=== PATIENT | female | born 1965 | race Hispanic/Latino ===

== ENCOUNTER 2021-09-11 17:19 | Inpatient (IN) | payer MEDICAID ==
[2021-09-11 19:08] LABS: Hematocrit 44.9 % (30.3-42.9); Hemoglobin 14.9 gm/dl (10.1-14.3); Mean Corpuscular HGB Conc 33 % (30-34); Mean Corpuscular Volume 90 fl (79-97); Platelet Count 323 K/mm3 (140-440); Red Blood Count 4.98 M/mm3 (3.65-5.03); Red Cell Distribution Width 14.1 % (13.2-15.2)
[2021-09-11 19:14] LABS: BUN/Creatinine Ratio 8
--- NOTE | 2021-09-11 19:18 | XRay Report ---
Chest 2 views INDICATION: Chest pain with cough IMPRESSION: There is a large cavitary mass identified projecting over the right apex measuring about 6 cm in diameter. This mass is ultimately nonspecific but could be infectious. Cross-sectional evalua tion is suggested. There is scattered pneumonia within the left upper and left lower lobes. Signer Name: Pedro Summers MD Signed: 09/11/2021 7:14 PM Workstation Name: [id number]
[2021-09-11 19:53] LABS: Alanine Aminotransferase 26 units/L (7-56); Blood Urea Nitrogen 6 mg/dL (7-17); Calcium 9.3 mg/dL (8.4-10.2); Hemolysis Index 0
[2021-09-11 20:56] LABS: Bacteria,Urine 1+ /HPF (Negative)
[2021-09-11 21:08] LABS: Bilirubin,Urine Negative (Negative); Blood,Urine Negative (Negative); Color,Urine Yellow (Yellow)
[2021-09-11 22:23] LABS: Anisocytosis 1+; Basophils % (Manual) 0 % (0.0-1.8); Platelet Estimate Consistent w Auto; Total Cells Counted 100
[2021-09-11] MEDS ORDERED: ONDANSETRON 4 MG/2 ML INJ IV ONE (23:07)
[2021-09-11] MEDS ORDERED: KETOROLAC 30 MG/1 ML INJ IV ONE (23:07)
[2021-09-11] MEDS ORDERED: SODIUM CHLORIDE 0.9% 1000 ML 1,000 ML IV ONE (23:07)
[2021-09-12] MEDS ORDERED: AZITHROMYCIN/NS 500 MG/250 ML 500 MG/250 ML BAG IV ONE (00:06)
[2021-09-12] MEDS ORDERED: MORPHINE 4 MG/1 ML INJ IV ONE ×2 (00:08→01:10)
[2021-09-12] MEDS ORDERED: cefTRIAXone/NS 1 GM/50 ML 1 GM/50 ML BAG IV ONE (00:10)
--- NOTE | 2021-09-12 00:39 | Emergency Department Report ---
ED General Adult HPI - General Chief complaint: Fever Stated complaint: FEVER/VOMITTING/COUGH/HEADACHE Time Seen by Provider: 09/11/21 23:07 Source: patient, family Mode of arrival: Wheelchair Limitations: Physical Limitation - History of Present Illness Initial comments: 56-year-old female with a history of COPD, hypertension, thyroid disease, arthritis, with chronic oxygen use presents to the emergency department with fever. Patient reports her symptoms began about 2 to 3 days ago, progressively worsening with associated headaches, body aches, cough and vomiting. States that temperature has been running anything from 100-102, no recent travel or sick contacts. Symptoms associated with chest pain with inspiration, worsening shortness of breath from her usual symptoms, loss of appetite fatigue weakness. No hemoptysis, no recent travel or sick contacts, patient has not been vaccinated for COVID. -: Gradual, days(s) (2) Location: head, chest Radiation: non-radiation Severity scale (0 -10): 10 Quality: aching, sharp Consistency: constant Improves with: none Worsens with: none Associated Symptoms: chest pain, cough, fever/chills, headaches, loss of appetite, malaise, nausea/vomiting, shortness of breath, weakness - Related Data Allergies Allergy/AdvReac Type Severity Reaction Status Date / Time doxycycline Allergy Hives Verified 09/11/21 17:38 ED Review of Systems ROS: Stated complaint: FEVER/VOMITTING/COUGH/HEADACHE Other details as noted in HPI Constitutional: chills, fever, malaise ENT: denies: throat pain Respiratory: cough, orthopnea, shortness of breath, SOB with exertion. denies: wheezing Cardiovascular: chest pain, dyspnea on exertion, edema. denies: palpitations Endocrine: denies: excessive sweating, intolerance to cold, intolerance to heat Gastrointestinal: nausea, vomiting. denies: abdominal pain, diarrhea, constipation, melena Musculoskeletal: back pain, arthralgia, myalgia Skin: denies: rash, lesions Neurological: headache, weakness. denies: numbness, paresthesias Psychiatric: anxiety. denies: auditory hallucinations, homicidal thoughts ED Past Medical Hx - Past Medical History Previous Medical History?: Yes Hx Hypertension: Yes Hx GERD: Yes Hx COPD: Yes Additional medical history: Leg weakness, Hiatal hernia, Thyroid problems - Surgical History Past Surgical History?: Yes Hx Cholecystectomy: Yes Additional Surgical History: Tubaligation, Bladder tact, - Social History Substance Use Type: None ED Physical Exam - General Limitations: Physical Limitation General appearance: alert (Puny appearing female), in no apparent distress, other - Head Head exam: Present: atraumatic, normocephalic - Eye Eye exam: Present: normal appearance. Absent: periorbital swelling, periorbital tenderness - ENT ENT exam: Present: mucous membranes dry - Neck Neck exam: Present: normal inspection. Absent: tenderness, lymphadenopathy - Respiratory Respiratory exam: Present: chest wall tenderness, decreased breath sounds. Absent: respiratory distress, wheezes, accessory muscle use - Cardiovascular Cardiovascular Exam: Present: normal rhythm, tachycardia - GI/Abdominal GI/Abdominal exam: Present: soft. Absent: distended, tenderness - Extremities Exam Extremities exam: Present: full ROM, tenderness, normal capillary refill. Absent: pedal edema, joint swelling, calf tenderness - Back Exam Back exam: Present: normal inspection, paraspinal tenderness - Neurological Exam Neurological exam: Present: alert, oriented X3. Absent: altered - Psychiatric Psychiatric exam: Present: normal affect, normal mood - Skin Skin exam: Present: warm, dry, normal color. Absent: rash, ecchymosis ED Course Vital Signs 09/11/21 17:41 Temperature 99.6 F Pulse Rate 109 H Respiratory 22 Rate Blood Pressure 138/92 [Right] O2 Sat by Pulse 97 Oximetry ED Medical Decision Making - Lab Data Result diagrams: 09/11/21 18:27 09/11/21 18:27 - Radiology Data Radiology results: report reviewed MPRESSION: There is a large cavitary mass identified projecting over the right apex measuring about 6 cm in diameter. This mass is ultimately nonspecific but could be infectious. Cross-sectional evaluation is suggested. There is scattered pneumonia within the left upper and left lower lobes. Signer Name: Pedro Summers MD - Medical Decision Making Patient with history of COPD oxygen use presenting with fever, headache cough shortness of breath. Chest x-ray pneumonia in the left lobes, unknown questionable mass in the right apex. coupled with leukocytosis, fever, history and exam, blood cultures antibiotics and admission have all been performed Spoke with the hospitalist Dr. Oscar @ [id number]-patient accepted. CT chest ordered. Updated patient on plan for admission with understanding Audio voice dictation device used, hence the chart might contain some dictation errors, mispronunciations, wrong spelling and wrong verbiage. Critical care attestation.: If time is entered above; I have spent that time in minutes in the direct care of this critically ill patient, excluding procedure time. ED Disposition Clinical Impression: Pneumonia involving left lung, COPD (chronic obstructive pulmonary disease), Supplemental oxygen dependent, Cavitating mass in right upper lung lobe, SIRS (systemic inflammatory response syndrome) Disposition: 09 ADMITTED INPATIENT Is pt being admited?: Yes Does the pt Need Aspirin: No Condition: Fair Instructions: Bacterial Pneumonia (ED), Chronic Obstructive Pulmonary Disease (ED)
[2021-09-12] MEDS ORDERED: ONDANSETRON 4 MG/2 ML INJ IV PRN (03:04)
[2021-09-12] MEDS ORDERED: ALBUTEROL 2.5 MG/3 ML NEBU IH PRN (03:04)
--- NOTE | 2021-09-12 03:12 | History and Physical Report ---
History of Present Illness Date of examination: 09/12/21 Date of admission: 09/12/21 Chief complaint: Fever Cough Vomiting Headache History of present illness: 56-year-old female with a history of COPD, hypertension, thyroid disease, arthritis, with chronic oxygen use presents to the emergency department with fever. Patient reports her symptoms began about 2 to 3 days ago, progressively worsening with associated headaches, body aches, cough and vomiting. States that temperature has been running anything from 100-102, no recent travel or sick contacts. Symptoms associated with chest pain with inspiration, worsening shortness of breath from her usual symptoms, loss of appetite fatigue weakness. No hemoptysis, no recent travel or sick contacts, patient has not been vaccinated for COVID. In the emergency room chest x-ray shows there is a large cavitary mass identified projecting over the right apex measuring about 6 cm in diameter. This mass is ultimately nonspecific but could be infectious. There is scattered pneumonia within the left upper and left lower lobes. So we will not admit the patient. We will put the patient on neb treatment, antibiotic, order CT scan of the chest and consult pulmonary. We also order COVID PCR test. Past History Past Medical History: arthritis, COPD, GERD, hypertension, other (Leg weakness, Hiatal hernia, Thyroid problems) Past Surgical History: cholecystectomy, Other (Tubaligation, Bladder tact,) Social history: no significant social history Family history: hypertension Medications and Allergies Allergies Allergy/AdvReac Type Severity Reaction Status Date / Time doxycycline Allergy Hives Verified 09/11/21 17:38 Review of Systems All systems: negative Constitutional: fatigue, malaise, lethargy, other (Fever, cough, headache, vomiting) Exam - Constitutional Vitals: Temp Pulse Resp BP Pulse Ox 99.6 F 109 H 22 138/92 97 09/11/21 17:41 09/11/21 17:41 09/11/21 17:41 09/11/21 17:41 09/11/21 17:41 General appearance: Present: no acute distress, well-nourished - EENT Eyes: Present: PERRL ENT: hearing intact, clear oral mucosa - Neck Neck: Present: supple, normal ROM - Respiratory Respiratory effort: normal Respiratory: bilateral: diminished - Cardiovascular Heart Sounds: Present: S1 & S2. Absent: rub, click - Extremities Extremities: pulses symmetrical, No edema Peripheral Pulses: within normal limits - Abdominal General gastrointestinal: Present: soft, non-tender, non-distended, normal bowel sounds Female genitourinary: Present: normal - Integumentary Integumentary: Present: clear, warm, dry - Musculoskeletal Musculoskeletal: gait normal, strength equal bilaterally - Psychiatric Psychiatric: appropriate mood/affect, intact judgment & insight - Neurologic Neurologic: CNII-XII intact, moves all extremities Results - Labs CBC & Chem 7: 09/11/21 18:27 09/11/21 18:27 Labs: Laboratory Last Values WBC 20.2 K/mm3 (4.5-11.0) H 09/11/21 18: RBC 4.98 M/mm3 (3.65-5.03) 09/11/21 18: Hgb 14.9 gm/dl (10.1-14.3) H 09/11/21 18: Hct 44.9 % (30.3-42.9) H 09/11/21 18: MCV 90 fl (79-97) 09/11/21 18: MCH 30 pg (28-32) 09/11/21 18: MCHC 33 % (30-34) 09/11/21 18: RDW 14.1 % (13.2-15.2) 09/11/21 18: Plt Count 323 K/mm3 (140-440) 09/11/21 18:27 Add Manual Diff Complete 09/11/21 18: Total Counted 100 09/11/21 18: Seg Neuts % (Manual) 84.0 % (40.0-70.0) H 09/11/21 18: Band Neutrophils % 0 % 09/11/21 18:27 Lymphocytes % (Manual) 9.0 % (13.4-35.0) L 09/11/21 18:27 Reactive Lymphs % (Man) 0 % 09/11/21 18: Monocytes % (Manual) 5.0 % (0.0-7.3) 09/11/21 18: Eosinophils % (Manual) 2.0 % (0.0-4.3) 09/11/21 18: Basophils % (Manual) 0 % (0.0-1.8) 09/11/21 18: Metamyelocytes % 0 % 09/11/21 18:27 Myelocytes % 0 % 09/11/21 18:27 Promyelocytes % 0 % 09/11/21 18:27 Blast Cells % 0 % 09/11/21 18:27 Nucleated RBC % Not Reportable 09/11/21 18:27 Seg Neutrophils # Man 17.0 K/mm3 (1.8-7.7) H 09/11/21 18:27 Band Neutrophils # 0.0 K/mm3 09/11/21 18:27 Lymphocytes # (Manual) 1.8 K/mm3 (1.2-5.4) 09/11/21 18:27 Abs React Lymphs (Man) 0.0 K/mm3 09/11/21 18:27 Monocytes # (Manual) 1.0 K/mm3 (0.0-0.8) H 09/11/21 18:27 Eosinophils # (Manual) 0.4 K/mm3 (0.0-0.4) 09/11/21 18:27 Basophils # (Manual) 0.0 K/mm3 (0.0-0.1) 09/11/21 18:27 Metamyelocytes # 0.0 K/mm3 09/11/21 18:27 Myelocytes # 0.0 K/mm3 09/11/21 18:27 Promyelocytes # 0.0 K/mm3 09/11/21 18:27 Blast Cells # 0.0 K/mm3 09/11/21 18:27 WBC Morphology Not Reportable 09/11/21 18:27 Hypersegmented Neuts Not Reportable 09/11/21 18:27 Hyposegmented Neuts Not Reportable 09/11/21 18:27 Hypogranular Neuts Not Reportable 09/11/21 18:27 Smudge Cells Not Reportable 09/11/21 18:27 Toxic Granulation Not Reportable 09/11/21 18:27 Toxic Vacuolation Not Reportable 09/11/21 18:27 Dohle Bodies Not Reportable 09/11/21 18:27 Pelger-Huet Anomaly Not Reportable 09/11/21 18:27 Hipolito Rods Not Reportable 09/11/21 18:27 Platelet Estimate Consistent w auto 09/11/21 18:27 Clumped Platelets Not Reportable 09/11/21 18:27 Plt Clumps, EDTA Not Reportable 09/11/21 18:27 Large Platelets Not Reportable 09/11/21 18:27 Giant Platelets Not Reportable 09/11/21 18:27 Platelet Satelliting Not Reportable 09/11/21 18:27 Plt Morphology Comment Not Reportable 09/11/21 18:27 RBC Morphology Not Reportable 09/11/21 18:27 Dimorphic RBCs Not Reportable 09/11/21 18:27 Polychromasia Not Reportable 09/11/21 18:27 Hypochromasia Not Reportable 09/11/21 18:27 Poikilocytosis Not Reportable 09/11/21 18:27 Anisocytosis 1+ 09/11/21 18:27 Microcytosis Not Reportable 09/11/21 18:27 Macrocytosis Not Reportable 09/11/21 18:27 Spherocytes Not Reportable 09/11/21 18:27 Pappenheimer Bodies Not Reportable 09/11/21 18:27 Sickle Cells Not Reportable 09/11/21 18:27 Target Cells Not Reportable 09/11/21 18:27 Tear Drop Cells Not Reportable 09/11/21 18:27 Ovalocytes Not Reportable 09/11/21 18:27 Helmet Cells Not Reportable 09/11/21 18:27 [place] Bodies Not Reportable 09/11/21 18:27 [place] Rings Not Reportable 09/11/21 18:27 Demian Cells Not Reportable 09/11/21 18:27 Bite Cells Not Reportable 09/11/21 18:27 Crenated Cell Not Reportable 09/11/21 18:27 Elliptocytes Not Reportable 09/11/21 18:27 Acanthocytes (Spur) Not Reportable 09/11/21 18:27 Rouleaux Not Reportable 09/11/21 18:27 Hemoglobin C Crystals Not Reportable 09/11/21 18:27 Schistocytes Not Reportable 09/11/21 18:27 Malaria parasites Not Reportable 09/11/21 18:27 Talha Bodies Not Reportable 09/11/21 18:27 Hem Pathologist Commnt No 09/11/21 18:27 Sodium 136 mmol/L (137-145) L 09/11/21 18:27 Potassium 3.3 mmol/L (3.6-5.0) L 09/11/21 18:27 Chloride 96.2 mmol/L (98-107) L 09/11/21 18:27 Carbon Dioxide 26 mmol/L (22-30) 09/11/21 18:27 Anion Gap 17 mmol/L 09/11/21 18:27 BUN 6 mg/dL (7-17) L 09/11/21 18:27 Creatinine 0.8 mg/dL (0.6-1.2) 09/11/21 18:27 Estimated GFR > 60 ml/min 09/11/21 18:27 BUN/Creatinine Ratio 8 % 09/11/21 18:27 Glucose 98 mg/dL (65-100) 09/11/21 18:27 Lactic Acid 1.00 mmol/L (0.7-2.0) 09/12/21 00:19 Calcium 9.3 mg/dL (8.4-10.2) 09/11/21 18:27 Total Bilirubin 0.40 mg/dL (0.1-1.2) 09/11/21 18:27 AST 29 units/L (5-40) 09/11/21 18:27 ALT 26 units/L (7-56) 09/11/21 18:27 Alkaline Phosphatase 170 units/L (35-129) H 09/11/21 18:27 Total Protein 8.6 g/dL (6.3-8.2) H 09/11/21 18:27 Albumin 4.0 g/dL (3.9-5) 09/11/21 18:27 Albumin/Globulin Ratio 0.9 % 09/11/21 18:27 Urine Color Yellow (Yellow) 09/11/21 Unknown Urine Turbidity Slightly cloudy (Clear) 09/11/21 Unknown Urine pH 8.0 (5.0-7.0) H 09/11/21 Unknown Ur Specific [place] 1.030 (1.003-1.030) 09/11/21 Unknown Urine Protein 30 mg/dl mg/dL (Negative) 09/11/21 Unknown Urine Glucose (UA) Negative mg/dL (Negative) 09/11/21 Unknown Urine Ketones Negative mg/dL (Negative) 09/11/21 Unknown Urine Blood Negative (Negative) 09/11/21 Unknown Urine Nitrite Negative (Negative) 09/11/21 Unknown Ur Reducing Substances Not Reportable 09/11/21 Unknown Urine Bilirubin Negative (Negative) 09/11/21 Unknown Urine Ictotest Not Reportable 09/11/21 Unknown Urine Urobilinogen 2.0 mg/dL (<2.0) 09/11/21 Unknown Ur Leukocyte Esterase Small (Negative) 09/11/21 Unknown Urine WBC (Auto) 30.0 /HPF (0.0-6.0) H 09/11/21 Unknown Urine RBC (Auto) 1.0 /HPF (0.0-6.0) 09/11/21 Unknown U Epithel Cells (Auto) < 1.0 /HPF (0-13.0) 09/11/21 Unknown Urine Bacteria (Auto) 1+ /HPF (Negative) 09/11/21 Unknown - Imaging and Cardiology Chest x-ray: report reviewed Assessment and Plan VTE prophylaxis?: Chemical Plan of care discussed with patient/family: Yes - Patient Problems (1) Pneumonia involving left lung Current Visit: Yes Status: Acute Plan to address problem: Admit the patient to the medical telemetry. Oxygen by nasal cannula 3 L/min. DuoNeb nebulizer every 4 hours. Albuterol via nebulizer every 4 hours as needed. Rocephin 2 g IV daily. Zithromax 500 mg p.o. daily. Blood culture and sputum culture. Follow CT scan of the chest. Consult pulmonary. Follow COVID PCR test (2) Cavitating mass in right upper lung lobe Current Visit: Yes Status: Acute Plan to address problem: Oxygen by nasal cannula 3 L/min. DuoNeb nebulizer every 4 hours. Albuterol via nebulizer every 4 hours as needed. Follow CT scan of the chest. Consult pulmonary. Consult oncology if needed (3) GERD (gastroesophageal reflux disease) Current Visit: Yes Status: Acute Plan to address problem: Pepcid 20 mg p.o. twice daily. We continue the home medication (4) Hypertension Current Visit: Yes Status: Acute Plan to address problem: Hydralazine 10 mg IV every 6 hours as needed. We continue the home medication (5) SIRS (systemic inflammatory response syndrome) Current Visit: Yes Status: Acute Plan to address problem: Rocephin 2 g IV daily. Zithromax 500 mg p.o. daily. Blood culture and sputum culture. Follow CT scan of the chest. Consult pulmonary. Recheck CBC in the morning. (6) COPD (chronic obstructive pulmonary disease) Current Visit: Yes Status: Acute Plan to address problem: Oxygen by nasal cannula 3 L/min. DuoNeb nebulizer every 4 hours. Albuterol via nebulizer every 4 hours as needed. (7) Supplemental oxygen dependent Current Visit: Yes Status: Acute Plan to address problem: Oxygen by nasal cannula 3 L/min. DuoNeb nebulizer every 4 hours. Albuterol via nebulizer every 4 hours as needed. (8) DVT prophylaxis Current Visit: Yes Status: Acute Plan to address problem: Heparin 5000 units subcu every 12 hours for DVT prophylaxis. Pepcid 20 mg p.o. twice daily for GI prophylaxis. Patient is a full code
[2021-09-12] MEDS ORDERED: hydrALAZINE 20 MG/1 ML INJ IV PRN (03:14)
[2021-09-12] MEDS: IPRATROPIUM/ALBUTEROL SULFATE 3 ML AMPUL.NEB IH SCH ×2 (07:32→14:43)
--- NOTE | 2021-09-12 08:30 | Consultation ---
History of Present Illness Consult date: 09/12/21 Requesting physician: KAMLA TINEO Reason for consult: lung mass, abnormal CXR/CT Past History Past Medical History: arthritis, COPD, GERD, hypertension, other (Leg weakness, Hiatal hernia, Thyroid problems) Past Surgical History: cholecystectomy, Other (Tubaligation, Bladder tact,) Social history: no significant social history Family history: hypertension Medications and Allergies Allergies Allergy/AdvReac Type Severity Reaction Status Date / Time doxycycline Allergy Hives Verified 09/11/21 17:38 Active Meds: Active Medications Acetaminophen (Acetaminophen 325 Mg Tab) 650 mg PO Q4H PRN PRN Reason: Pain MILD(1-3)/Fever >100.5/DEGROOT Albuterol (Albuterol 2.5 Mg/3 Ml Nebu) 2.5 mg IH Q3HRT PRN PRN Reason: Shortness Of Breath Albuterol/Ipratropium (Ipratropium/Albuterol Sulfate 3 Ml Ampul.Neb) 1 ampul IH Q6HRT [facility] Last Admin: 09/12/21 07:32 Dose: 1 ampul Azithromycin (Azithromycin 250 Mg Tab) 500 mg PO QDAY@2200 [facility]; Protocol Stop: 09/15/21 23:59 Famotidine (Famotidine 20 Mg Tab) 20 mg PO BID [facility] Heparin Sodium (Porcine) (Heparin 5,000 Unit/1 Ml Vial) 5,000 unit SUB-Q Q12HR [facility] Hydralazine HCl (Hydralazine 20 Mg/1 Ml Inj) 10 mg IV Q6H PRN PRN Reason: Blood Pressure Ceftriaxone Sodium (Rocephin/Ns 2 Gm/100 Ml) 2 gm in 100 mls @ 200 mls/hr IV Q24H [facility]; Protocol Stop: 09/15/21 23:59 Morphine Sulfate (Morphine 2 Mg/1 Ml Inj) 2 mg IV Q4H PRN PRN Reason: Pain, Moderate (4-6) Morphine Sulfate (Morphine 4 Mg/1 Ml Inj) 4 mg IV Q4H PRN PRN Reason: Pain , Severe (7-10) Ondansetron HCl (Ondansetron 4 Mg/2 Ml Inj) 4 mg IV Q8H PRN PRN Reason: Nausea And Vomiting Sodium Chloride (Sodium Chloride 0.9% 10 Ml Flush Syringe) 10 ml IV BID [facility] Sodium Chloride (Sodium Chloride 0.9% 10 Ml Flush Syringe) 10 ml IV PRN PRN PRN Reason: LINE FLUSH Physical Examination Vital signs: Vital Signs Temp Pulse Resp BP Pulse Ox 99.6 F 109 H 22 138/92 97 09/11/21 17:41 09/11/21 17:41 09/11/21 17:41 09/11/21 17:41 09/11/21 17:41 Results - Laboratory Findings CBC and BMP: 09/11/21 18:27 09/11/21 18:27 Abnormal lab findings: Abnormal Labs 09/11/21 09/11/21 09/11/21 18:27 18:27 Unknown WBC 20.2 H Hgb 14.9 H Hct 44.9 H Seg Neuts % (Manual) 84.0 H Lymphocytes % (Manual) 9.0 L Seg Neutrophils # Man 17.0 H Monocytes # (Manual) 1.0 H Sodium 136 L Potassium 3.3 L Chloride 96.2 L BUN 6 L Alkaline Phosphatase 170 H Total Protein 8.6 H Urine pH 8.0 H Urine WBC (Auto) 30.0 H Assessment and Plan 56 y/o with history of COPD, chronic respiratory failure admitted with abnormal CXR of chest, elevated white count and hypokalemia. 1. CT chest ordered early am but still not done yet, agree this should be done 2. Agree with Gabbie for now 3. If able to produce sputum, will need this sent as well.
[2021-09-12] MEDS: ACETAMINOPHEN 325 MG TAB PO PRN ×3 (11:07→22:08)
[2021-09-12] MEDS: MORPHINE 4 MG/1 ML INJ IV PRN ×2 (11:07→16:05)
[2021-09-12] MEDS: FAMOTIDINE 20 MG TAB PO SCH ×2 (11:08→22:12)
[2021-09-12] MEDS: HEPARIN 5,000 UNIT/1 ML VIAL SUB-Q SCH ×2 (11:08→22:11)
--- NOTE | 2021-09-12 12:05 | Cat Scan Report ---
CT CHEST WITH CONTRAST INDICATION / CLINICAL INFORMATION: Abnormal chest x-ray, cavitary mass.. TECHNIQUE: Axial CT images were obtained through the chest after 75 cc of Omnipaque [address] scans at this location are performed using CT dose reduction for ALARA by means of automated e xposure control. COMPARISON: Chest x-ray performed yesterday FINDINGS: HEART: No significant abnormality. CORONARY ARTERY CALCIFICATION: Absent -- None. THORACIC AORTA: Mild atherosclerotic calcification without acute abnormality. MEDIASTINUM / SUDHIR: There are scattered borderline to mildly enlarged lymph nodes in the paratracheal chain, right hilar chain, subcarinal chain the largest lymph node measures 1.3 cm in short axis in t he subcarinal chain. And AP window chain. PLEURA: No pleural effusion. No pneumothorax. LUNGS: Advanced underlying emphysematous changes are evident. Is a large cavitary lesion near the rig ht lung apex measuring up to 9.9 x 4.1 x 6.5 cm. This area of cavitation has a thick irregular wall a nd contains internal debris. There is no discrete soft tissue component. There is consolidation in th e lateral left lower lobe measuring up to 10.9 x 4.5 cm in axial plane. An irregular masslike density with spiculation is identified in the superior lingula measuring up to 2.2 x 2.0 x 2.8 cm. This may represent a scar. Underlying mass lesion is difficult to exclude. ADDITIONAL FINDINGS: Surgical changes near the GE junction are identified suggesting previous hernia repair, correlate with history. There is a small recurrent hiatal hernia. UPPER ABDOMEN: The liver is diffusely hypodense consistent with moderate to severe steatosis. Ventral wall defect just below the xiphoid process measures 2.3 cm in diameter and contains mesenteric fat. SKELETAL SYSTEM: No suspicious bony lesion or bony destruction is detected. IMPRESSION: Abnormal CT chest. There is a large irregular cavitary lesion near the right lung apex as described above. Although a ca vitating mass cannot be excluded, I suspect this could be inflammatory in nature such as fungal infec tion or tuberculosis. There is also a consolidation in the lateral left lower lobe suggestive of pneu monia. There is an irregular spiculated mass or scarring in the left upper lobe as described. There a re advanced underlying emphysematous changes. Mildly enlarged mediastinal lymph nodes as described. This could be reactive in nature although a abiola plastic/metastatic process is not excluded. Moderate to severe hepatic steatosis. Small hiatal hernia. Signer Name: Rodney Yung Jr, MD Signed: 09/12/2021 12:01 PM Workstation Name: [id number]
--- NOTE | 2021-09-12 17:50 | Progress Note ---
Assessment and Plan Assessment and plan: VTE prophylaxis?: Chemical Plan of care discussed with patient/family: Yes --Pneumonia/community-acquired Oxygen by nasal cannula 3 L/min. Empiric antibiotics IV Rocephin and Zithromax Follow blood cultures, cough medicine Supportive care Follow CT chest, pulmonary following --PUI/high suspicion for COVID-19 Isolation precautions, continue oxygen Follow hernandez PCR test, supportive care -- Cavitating mass in right upper lung lobe Oxygen by nasal cannula 3 L/min. DuoNeb's follow CT scan of the chest. Follow pulmonary Order CT scan of the chest CT chest with contrast ; large irregular cavitary lesion near the right lung apex although a cavitating mass cannot be excluded I suspect this could be inflammatory in nature such as fungal infection or tuberculosis there is also consolidation lateral left lower lobe suggestive of pneumonia There is an irregular spiculated mass or scarring in the left upper lobe advanced emphysematous changes Mildly enlarged mediastinal lymph nodes could be reactive --GERD (gastroesophageal reflux disease) Pepcid 20 mg p.o. twice daily. We continue the home medication -- Hypertension; moderate control Continue current antihypertensives and as needed hydralazine --SIRS (systemic inflammatory response syndrome) Empiric antibiotics follow cultures -- COPD (chronic obstructive pulmonary disease) Oxygen by nasal cannula 3 L/min. DuoNeb nebulizer every 4 hours. Albuterol via nebulizer every 4 hours as needed. Pulmonary following --Full CODE STATUS --DVT/GI prophylaxis Heparin 5000 units subcu every 12 hours DVT prophylaxis Pepcid 20 mg p.o. twice daily for GI prophylaxis. Closely monitor the patient and adjust the management as needed Plan of care reviewed with the patient and her nurse Prolonged inpatient care 35 minutes Advance care plan; patient's lung problems, COPD, cavitary lesion, community- acquired pneumonia, mediastinal lymphadenopathy Possible lung mass, high suspicion for COVID-19, explained to the patient, I informed tests and reports, informed treatment plan I explained this is diagnosis, I explained his prognosis, I explained consultants involvement and they are improved Answered all their questions, verbalized understanding, 30 minutes Critical care statement; Critical Care statement: The high probability of a clinically significant, sudden or life threatening deterioration of the [respiratory, infectious disease, metabolic, renal ] system(s) required my full and direct attention, intervention and personal management. The aggregate critical care time was [60] minutes. This time is in addition to time spent performing reported procedures but includes the following: [x] Data Review and interpretation [x] Patient assessment and monitoring of vital signs [x] Documentation and patient counseling [x] Medication orders and management 09/12/2021; Disposition ;follow hernandez PCR, follow cultures Follow consultants evaluation recommendations History Interval history: I have seen and examined the patient at the bedside Patient's chart and medications reviewed Patient complains of mild shortness of breath and some cough Vital signs noted Hospitalist Physical - Constitutional Vitals: Temp Pulse Resp BP Pulse Ox 99.9 F H 105 H 20 103/65 92 09/12/21 08:25 09/12/21 08:25 09/12/21 08:25 09/12/21 08:25 09/12/21 08:25 General appearance: Present: no acute distress, well-nourished - EENT Eyes: Present: PERRL, EOM intact - Neck Neck: Present: supple, normal ROM - Respiratory Respiratory effort: normal Respiratory: bilateral: diminished, rhonchi, negative: rales, wheezing - Cardiovascular Rhythm: regular Heart Sounds: Present: S1 & S2 - Extremities Extremities: no ischemia, No edema - Abdominal General gastrointestinal: soft, non-tender, non-distended, normal bowel sounds - Integumentary Integumentary: Present: clear, warm - Psychiatric Psychiatric: appropriate mood/affect, cooperative - Neurologic Neurologic: CNII-XII intact, moves all extremities Results - Labs CBC & Chem 7: 09/11/21 18:27 09/11/21 18:27 Labs: Laboratory Last Values WBC 20.2 K/mm3 (4.5-11.0) H 09/11/21 18:27 RBC 4.98 M/mm3 (3.65-5.03) 09/11/21 18:27 Hgb 14.9 gm/dl (10.1-14.3) H 09/11/21 18:27 Hct 44.9 % (30.3-42.9) H 09/11/21 18:27 MCV 90 fl (79-97) 09/11/21 18:27 MCH 30 pg (28-32) 09/11/21 18: MCHC 33 % (30-34) 09/11/21 18: RDW 14.1 % (13.2-15.2) 09/11/21 18:27 Plt Count 323 K/mm3 (140-440) 09/11/21 18:27 Add Manual Diff Complete 09/11/21 18: Total Counted 100 09/11/21 18:27 Seg Neuts % (Manual) 84.0 % (40.0-70.0) H 09/11/21 18:27 Band Neutrophils % 0 % 09/11/21 18:27 Lymphocytes % (Manual) 9.0 % (13.4-35.0) L 09/11/21 18:27 Reactive Lymphs % (Man) 0 % 09/11/21 18:27 Monocytes % (Manual) 5.0 % (0.0-7.3) 09/11/21 18: Eosinophils % (Manual) 2.0 % (0.0-4.3) 09/11/21 18: Basophils % (Manual) 0 % (0.0-1.8) 09/11/21 18: Metamyelocytes % 0 % 09/11/21 18: Myelocytes % 0 % 09/11/21 18:27 Promyelocytes % 0 % 09/11/21 18:27 Blast Cells % 0 % 09/11/21 18: Nucleated RBC % Not Reportable 09/11/21 18: Seg Neutrophils # Man 17.0 K/mm3 (1.8-7.7) H 09/11/21 18:27 Band Neutrophils # 0.0 K/mm3 09/11/21 18:27 Lymphocytes # (Manual) 1.8 K/mm3 (1.2-5.4) 09/11/21 18:27 Abs React Lymphs (Man) 0.0 K/mm3 09/11/21 18:27 Monocytes # (Manual) 1.0 K/mm3 (0.0-0.8) H 09/11/21 18:27 Eosinophils # (Manual) 0.4 K/mm3 (0.0-0.4) 09/11/21 18: Basophils # (Manual) 0.0 K/mm3 (0.0-0.1) 09/11/21 18:27 Metamyelocytes # 0.0 K/mm3 09/11/21 18:27 Myelocytes # 0.0 K/mm3 09/11/21 18:27 Promyelocytes # 0.0 K/mm3 09/11/21 18:27 Blast Cells # 0.0 K/mm3 09/11/21 18:27 WBC Morphology Not Reportable 09/11/21 18:27 Hypersegmented Neuts Not Reportable 09/11/21 18:27 Hyposegmented Neuts Not Reportable 09/11/21 18:27 Hypogranular Neuts Not Reportable 09/11/21 18:27 Smudge Cells Not Reportable 09/11/21 18:27 Toxic Granulation Not Reportable 09/11/21 18:27 Toxic Vacuolation Not Reportable 09/11/21 18:27 Dohle Bodies Not Reportable 09/11/21 18:27 Pelger-Huet Anomaly Not Reportable 09/11/21 18:27 Hipolito Rods Not Reportable 09/11/21 18:27 Platelet Estimate Consistent w auto 09/11/21 18:27 Clumped Platelets Not Reportable 09/11/21 18:27 Plt Clumps, EDTA Not Reportable 09/11/21 18:27 Large Platelets Not Reportable 09/11/21 18:27 Giant Platelets Not Reportable 09/11/21 18:27 Platelet Satelliting Not Reportable 09/11/21 18:27 Plt Morphology Comment Not Reportable 09/11/21 18:27 RBC Morphology Not Reportable 09/11/21 18:27 Dimorphic RBCs Not Reportable 09/11/21 18:27 Polychromasia Not Reportable 09/11/21 18:27 Hypochromasia Not Reportable 09/11/21 18:27 Poikilocytosis Not Reportable 09/11/21 18:27 Anisocytosis 1+ 09/11/21 18:27 Microcytosis Not Reportable 09/11/21 18:27 Macrocytosis Not Reportable 09/11/21 18:27 Spherocytes Not Reportable 09/11/21 18:27 Pappenheimer Bodies Not Reportable 09/11/21 18:27 Sickle Cells Not Reportable 09/11/21 18:27 Target Cells Not Reportable 09/11/21 18:27 Tear Drop Cells Not Reportable 09/11/21 18:27 Ovalocytes Not Reportable 09/11/21 18:27 Helmet Cells Not Reportable 09/11/21 18:27 [place] Bodies Not Reportable 09/11/21 18:27 [place] Rings Not Reportable 09/11/21 18:27 [place] Cells Not Reportable 09/11/21 18:27 Bite Cells Not Reportable 09/11/21 18:27 Crenated Cell Not Reportable 09/11/21 18:27 Elliptocytes Not Reportable 09/11/21 18:27 Acanthocytes (Spur) Not Reportable 09/11/21 18:27 Rouleaux Not Reportable 09/11/21 18:27 Hemoglobin C Crystals Not Reportable 09/11/21 18:27 Schistocytes Not Reportable 09/11/21 18:27 Malaria parasites Not Reportable 09/11/21 18:27 [place]ha Bodies Not Reportable 09/11/21 18:27 Hem Pathologist Commnt No 09/11/21 18:27 Sodium 136 mmol/L (137-145) L 09/11/21 18:27 Potassium 3.3 mmol/L (3.6-5.0) L 09/11/21 18:27 Chloride 96.2 mmol/L (98-107) L 09/11/21 18:27 Carbon Dioxide 26 mmol/L (22-30) 09/11/21 18:27 Anion Gap 17 mmol/L 09/11/21 18:27 BUN 6 mg/dL (7-17) L 09/11/21 18:27 Creatinine 0.8 mg/dL (0.6-1.2) 09/11/21 18:27 Estimated GFR > 60 ml/min 09/11/21 18:27 BUN/Creatinine Ratio 8 % 09/11/21 18:27 Glucose 98 mg/dL (65-100) 09/11/21 18:27 Lactic Acid 1.00 mmol/L (0.7-2.0) 09/12/21 00:19 Calcium 9.3 mg/dL (8.4-10.2) 09/11/21 18:27 Total Bilirubin 0.40 mg/dL (0.1-1.2) 09/11/21 18:27 AST 29 units/L (5-40) 09/11/21 18:27 ALT 26 units/L (7-56) 09/11/21 18:27 Alkaline Phosphatase 170 units/L (35-129) H 09/11/21 18:27 Total Protein 8.6 g/dL (6.3-8.2) H 09/11/21 18:27 Albumin 4.0 g/dL (3.9-5) 09/11/21 18:27 Albumin/Globulin Ratio 0.9 % 09/11/21 18:27 Urine Color Yellow (Yellow) 09/11/21 Unknown Urine Turbidity Slightly cloudy (Clear) 09/11/21 Unknown Urine pH 8.0 (5.0-7.0) H 09/11/21 Unknown Ur Specific [place] 1.030 (1.003-1.030) 09/11/21 Unknown Urine Protein 30 mg/dl mg/dL (Negative) 09/11/21 Unknown Urine Glucose (UA) Negative mg/dL (Negative) 09/11/21 Unknown Urine Ketones Negative mg/dL (Negative) 09/11/21 Unknown Urine Blood Negative (Negative) 09/11/21 Unknown Urine Nitrite Negative (Negative) 09/11/21 Unknown Ur Reducing Substances Not Reportable 09/11/21 Unknown Urine Bilirubin Negative (Negative) 09/11/21 Unknown Urine Ictotest Not Reportable 09/11/21 Unknown Urine Urobilinogen 2.0 mg/dL (<2.0) 09/11/21 Unknown Ur Leukocyte Esterase Small (Negative) 09/11/21 Unknown Urine WBC (Auto) 30.0 /HPF (0.0-6.0) H 09/11/21 Unknown Urine RBC (Auto) 1.0 /HPF (0.0-6.0) 09/11/21 Unknown U Epithel Cells (Auto) < 1.0 /HPF (0-13.0) 09/11/21 Unknown Urine Bacteria (Auto) 1+ /HPF (Negative) 09/11/21 Unknown Coronavirus (PCR) Positive (Negative) A 09/12/21 10:30 Microbiology: Microbiology 09/12/21 00:19 Peripheral/Venous Blood Culture - Preliminary Culture in Progress 09/12/21 00:13 Peripheral/Venous Blood Culture - Preliminary Culture in Progress Active Medications - Current Medications Current Medications: Generic Name Dose Route Start Last Admin Trade Name Freq PRN Reason Stop Dose Admin Acetaminophen 650 mg 09/12/21 03:04 09/12/21 11:07 Acetaminophen 325 Mg Tab PO 650 mg Q4H PRN Administration Pain MILD(1-3)/Fever >100.5/DEGROOT Albuterol 2 puff 09/12/21 20:00 Albuterol 8.5 Gm Mdi Inhalation IH Q6HRT PRN Shortness Of Breath Azithromycin 500 mg 09/12/21 22:00 Azithromycin 250 Mg Tab PO 09/15/21 23:59 QDAY@2200 [facility] Protocol Famotidine 20 mg 09/12/21 10:00 09/12/21 11:08 Famotidine 20 Mg Tab PO 20 mg BID BRANDAN Administration Guaifenesin 10 ml 09/12/21 16:30 Guaifenesin Dm 200/20 Mg Oral Liqd 10 Ml PO Q4H PRN Cough Heparin Sodium (Porcine) 5,000 unit 09/12/21 10:00 09/12/21 11:08 Heparin 5,000 Unit/1 Ml Vial SUB-Q 5,000 unit Q12HR BRANDAN Administration Hydralazine HCl 10 mg 09/12/21 03:14 Hydralazine 20 Mg/1 Ml Inj IV Q6H PRN Blood Pressure Ceftriaxone Sodium 2 gm in 100 mls @ 200 mls/hr 09/12/21 22:00 Rocephin/Ns 2 Gm/100 Ml IV 09/15/21 23:59 Q24H [facility] Protocol Morphine Sulfate 2 mg 09/12/21 03:04 Morphine 2 Mg/1 Ml Inj IV Q4H PRN Pain, Moderate (4-6) Morphine Sulfate 4 mg 09/12/21 03:04 09/12/21 11:07 Morphine 4 Mg/1 Ml Inj IV 4 mg Q4H PRN Administration Pain , Severe (7-10) Ondansetron HCl 4 mg 09/12/21 03:04 Ondansetron 4 Mg/2 Ml Inj IV Q8H PRN Nausea And Vomiting Sodium Chloride 10 ml 09/12/21 10:00 09/12/21 11:08 Sodium Chloride 0.9% 10 Ml Flush Syringe IV 10 ml BID BRANDAN Administration Sodium Chloride 10 ml 09/12/21 03:04 Sodium Chloride 0.9% 10 Ml Flush Syringe IV PRN PRN LINE FLUSH
[2021-09-12] MEDS ORDERED: REMDESIVIR 200 MG in SODIUM CHLORIDE 0.9% 250ML 250 ML IV ONE (18:11)
[2021-09-12] MEDS: guaiFENesin DM 200/20 MG ORAL LIQD 10 ML PO PRN (19:39)
[2021-09-12] MEDS ORDERED: ALBUTEROL 8.5 GM MDI INHALATION IH PRN (20:00)
--- NOTE | 2021-09-12 20:08 | Event Note ---
Date: 09/12/21 Samuel PCR test is positive, placed on contact and droplet isolation Inflammatory markers sent Patient is on 2 L of nasal cannula oxygen Started dexamethasone for 10 days Start remdesivir per protocol Requested inflammatory markers Continue empiric antibiotics Rocephin and Zithromax Requested procalcitonin Pulmonary following ID consult in the morning Plan of care discussed with the patient's nurse
[2021-09-12 20:52] LABS: Blood Urea Nitrogen 9 mg/dL (7-17); Hemolysis Index 20
[2021-09-12 21:13] LABS: Alanine Aminotransferase 28 units/L (7-56); Albumin 3.6 g/dL (3.9-5)
[2021-09-12 21:16] LABS: BUN/Creatinine Ratio 13
[2021-09-12] MEDS ORDERED: AZITHROMYCIN 250 MG TAB PO SCH (22:00)
[2021-09-12] MEDS ORDERED: cefTRIAXone/NS 2 GM/100 ML 2 GM/100 ML BAG IV SCH (22:00)
[2021-09-12] MEDS: MORPHINE 2 MG/1 ML INJ IV PRN (22:12)
[2021-09-13] MEDS: guaiFENesin DM 200/20 MG ORAL LIQD 10 ML PO PRN ×2 (00:15→04:19)
[2021-09-13] MEDS: ACETAMINOPHEN 325 MG TAB PO PRN ×2 (04:18→21:58)
[2021-09-13] MEDS: MORPHINE 4 MG/1 ML INJ IV PRN (06:38)
[2021-09-13 08:00] LABS: Hematocrit 37.6 % (30.3-42.9); Mean Corpuscular HGB Conc 35 % (30-34); Mean Corpuscular Volume 89 fl (79-97); Platelet Count 280 K/mm3 (140-440); Red Cell Distribution Width 13.7 % (13.2-15.2)
[2021-09-13 08:22] LABS: Alanine Aminotransferase 29 units/L (7-56); Albumin 3.6 g/dL (3.9-5); Blood Urea Nitrogen 6 mg/dL (7-17); Calcium 8.9 mg/dL (8.4-10.2); Hemolysis Index 0
[2021-09-13 08:47] LABS: BUN/Creatinine Ratio 10
[2021-09-13 08:58] LABS: C-Reactive Protein > 35.00 mg/dL (0.00-1.30)
[2021-09-13 09:58] LABS: Basophils % (Manual) 0 % (0.0-1.8); Total Cells Counted 100
[2021-09-13 09:59] LABS: Platelet Estimate Consistent w Auto; RBC Morphology Normal
[2021-09-13] MEDS: dexAMETHasone 4 MG/ML VIAL IV SCH (10:33)
[2021-09-13] MEDS: MORPHINE 2 MG/1 ML INJ IV PRN ×2 (10:33→15:47)
[2021-09-13] MEDS: FAMOTIDINE 20 MG TAB PO SCH ×2 (10:33→21:59)
[2021-09-13] MEDS: HEPARIN 5,000 UNIT/1 ML VIAL SUB-Q SCH ×2 (10:33→21:59)
--- NOTE | 2021-09-13 11:26 | Progress Note ---
Assessment and Plan 56 y/o with history of COPD, chronic respiratory failure admitted with abnormal CXR of chest, elevated white count and hypokalemia. 09/13/21: given COVID positive state, unable to bronch at this time. Induced sputum if possible. Agree with ID consult. Hopeful they will broaden abx therapy. Continue supplemental O2. Guarded prognosis. 1. CT chest ordered early am but still not done yet, agree this should be done 2. Agree with Gabbie for now 3. If able to produce sputum, will need this sent as well. Subjective Date of service: 09/13/21 Interval history: Patient is COVID positive however I do not feel her CT changes are related to COVID. She has horrible emphysema and the large area in the right upper lobe could be a cavity but it also could be pneumonia within emphysematous bullae. Objective Vital Signs - 12hr 09/13/21 09/13/21 09/13/21 04:44 05:39 10:33 Temperature 98.9 F Pulse Rate 69 Respiratory 18 20 Rate Blood Pressure 121/66 [Right] O2 Sat by Pulse 98 98 Oximetry CBC and BMP: 09/13/21 07:49 09/13/21 07:49 ABG, PT/INR, D-dimer: PT/INR, D-dimer D-Dimer 772.87 ng/mlDDU (0-234) H 09/13/21 07:49 Abnormal lab findings: Abnormal Labs 09/11/21 09/11/21 09/11/21 18:27 18:27 Unknown WBC 20.2 H Hgb 14.9 H Hct 44.9 H MCHC Seg Neuts % (Manual) 84.0 H Lymphocytes % (Manual) 9.0 L Eosinophils % (Manual) Seg Neutrophils # Man 17.0 H Monocytes # (Manual) 1.0 H Eosinophils # (Manual) D-Dimer Sodium 136 L Potassium 3.3 L Chloride 96.2 L BUN 6 L Glucose Ferritin Alkaline Phosphatase 170 H Lactate Dehydrogenase C-Reactive Protein Total Protein 8.6 H Albumin Urine pH 8.0 H Urine WBC (Auto) 30.0 H Coronavirus (PCR) 09/12/21 09/12/21 09/13/21 10:30 19:44 07:49 WBC 14.6 H Hgb Hct MCHC 35 H Seg Neuts % (Manual) 82.0 H Lymphocytes % (Manual) 8.0 L Eosinophils % (Manual) 6.0 H Seg Neutrophils # Man 12.0 H Monocytes # (Manual) Eosinophils # (Manual) 0.9 H D-Dimer Sodium Potassium Chloride BUN Glucose Ferritin Alkaline Phosphatase 163 H Lactate Dehydrogenase C-Reactive Protein Total Protein Albumin 3.6 L Urine pH Urine WBC (Auto) Coronavirus (PCR) Positive A 09/13/21 09/13/21 09/13/21 07:49 07:49 07:49 WBC Hgb Hct MCHC Seg Neuts % (Manual) Lymphocytes % (Manual) Eosinophils % (Manual) Seg Neutrophils # Man Monocytes # (Manual) Eosinophils # (Manual) D-Dimer 772.87 H Sodium Potassium 3.3 L D Chloride BUN 6 L Glucose 119 H Ferritin 491.1 H Alkaline Phosphatase 149 H Lactate Dehydrogenase 252 H C-Reactive Protein > 35.00 H Total Protein Albumin 3.6 L Urine pH Urine WBC (Auto) Coronavirus (PCR)
[2021-09-13] MEDS ORDERED: NON-FORMULARY EACH (Cyclobenzaprine 10 MG) PO PRN (12:21)
--- NOTE | 2021-09-13 12:22 | Progress Note ---
Assessment and Plan --Sepsis, due to underlying pneumonia, present on admission -- Positive COVID-19/COVID-19 pneumonia Isolation precautions, continue oxygen Initiated on dexamethasone and prednisone Consulted ID, follow inflammatory markers, procalcitonin level Continue empiric antibiotics for now -- Cavitating mass in right upper lung lobe Oxygen by nasal cannula 3 L/min. DuoNeb's Ordered CT scan of the chest. Follow pulmonary recommendation CT chest with contrast ; large irregular cavitary lesion near the right lung apex although a cavitating mass cannot be excluded I suspect this could be inflammatory in nature such as fungal infection or tuberculosis there is also consolidation lateral left lower lobe suggestive of pneumonia There is an irregular spiculated mass or scarring in the left upper lobe advanced emphysematous changes Mildly enlarged mediastinal lymph nodes could be reactive --GERD (gastroesophageal reflux disease) Pepcid 20 mg p.o. twice daily. We continue the home medication -- Hypertension; moderate control Continue current antihypertensives -metoprolol 25mg bid and as needed hydralazine --History of depression, continue home dose of bupropion and Lexapro -- Hypothyroidism, continue levothyroxine -- COPD (chronic obstructive pulmonary disease) Oxygen by nasal cannula 3 L/min. DuoNeb nebulizer every 4 hours. Albuterol via nebulizer every 4 hours as needed. Pulmonary following --Full CODE STATUS --DVT/GI prophylaxis Heparin 5000 units subcu every 12 hours DVT prophylaxis Pepcid 20 mg p.o. twice daily for GI prophylaxis. Closely monitor the patient and adjust the management as needed Plan of care reviewed with the patient and her nurse 09/12/2021; Disposition ;follow hernandez PCR, follow cultures Follow consultants evaluation recommendations 09/13: Positive for COVID-19, initiated on dexamethasone and remdesivir. CT chest with contrast suggestive for cavitary mass lesion on the right lung and left upper lobe. Pulmonary consulted, will follow recommendation. given COVID positive state, unable to bronch at this time. Consulted ID: Follow recommendation Subjective Date of service: 09/13/21 Interval history: Patient seen and examined. Medical records and medication list reviewed. No acute event overnight noted by the RN. Patient complains of cough and difficulty breathing even on rest. Patient is tolerating diet. She is on 3 L nasal cannula O2 Discussed plan of care at bedside with patient. Objective - Exam Narrative Exam: Limited physical exam due to COVID-19 pandemic to minimize transmission of the disease and to preserve PPE. Vital reviewed and stable. GENERAL: Elderly white female lying on bed appeared to be in no discomfort. HEENT: Normocephalic. Atraumatic. NECK: Supple. CHEST/LUNGS: breathing nonlabored. On nasal cannula HEART/CARDIOVASCULAR: Heart rate stable on telemetry ABDOMEN: Visibly not distended SKIN: There is no rash NEURO: No focal motor deficit. Follows command. MUSCULOSKELETAL: No joint effusion EXTRIMITY: No swelling, no cyanosis or clubbing. PSYCH: Cooperative. - Constitutional Vitals: Vital Signs - 12hr 09/13/21 09/13/21 09/13/21 04:44 05:39 10:33 Temperature 98.9 F Pulse Rate 69 Respiratory 18 20 Rate Blood Pressure 121/66 [Right] O2 Sat by Pulse 98 98 Oximetry - Labs CBC & Chem 7: 09/13/21 07:49 09/13/21 07:49 Labs: Abnormal lab results 09/12/21 09/12/21 09/13/21 Range/Units 10:30 19:44 07:49 WBC 14.6 H (4.5-11.0) K/mm3 MCHC 35 H (30-34) % Seg Neuts % (Manual) 82.0 H (40.0-70.0) % Lymphocytes % (Manual) 8.0 L (13.4-35.0) % Eosinophils % (Manual) 6.0 H (0.0-4.3) % Seg Neutrophils # Man 12.0 H (1.8-7.7) K/mm3 Eosinophils # (Manual) 0.9 H (0.0-0.4) K/mm3 D-Dimer (0-234) ng/mlDDU Potassium (3.6-5.0) mmol/L BUN (7-17) mg/dL Glucose (65-100) mg/dL Ferritin (10.0-200.0) ng/mL Alkaline Phosphatase 163 H (35-129) units/L Lactate Dehydrogenase (91-180) units/L C-Reactive Protein (0.00-1.30) mg/dL Albumin 3.6 L (3.9-5) g/dL Coronavirus (PCR) Positive A (Negative) 09/13/21 09/13/21 09/13/21 Range/Units 07:49 07:49 07:49 WBC (4.5-11.0) K/mm3 MCHC (30-34) % Seg Neuts % (Manual) (40.0-70.0) % Lymphocytes % (Manual) (13.4-35.0) % Eosinophils % (Manual) (0.0-4.3) % Seg Neutrophils # Man (1.8-7.7) K/mm3 Eosinophils # (Manual) (0.0-0.4) K/mm3 D-Dimer 772.87 H (0-234) ng/mlDDU Potassium 3.3 L D (3.6-5.0) mmol/L BUN 6 L (7-17) mg/dL Glucose 119 H (65-100) mg/dL Ferritin 491.1 H (10.0-200.0) ng/mL Alkaline Phosphatase 149 H (35-129) units/L Lactate Dehydrogenase 252 H (91-180) units/L C-Reactive Protein > 35.00 H (0.00-1.30) mg/dL Albumin 3.6 L (3.9-5) g/dL Coronavirus (PCR) (Negative)
[2021-09-13] MEDS ORDERED: VANCOMYCIN 1,000 MG in SODIUM CHLORIDE 0.9% 500 ML 500 ML IV ONE (12:36)
--- NOTE | 2021-09-13 12:48 | Consultation ---
History of Present Illness - Reason for Consult Consult date: 09/13/21 COVID, cavitary pneumonia Requesting physician: BRYAN RODGERS - History of Present Illness The patient is a 56-year-old female with COPD, hypertension, chronic respiratory failure was admitted to the hospital with fever, cough, headache. Unvaccinated for COVID-19. Chest x-ray revealed large cavitary mass in the right apex. CT revealed a large irregular cavitary lesion in the right lung apex. Also consolidation in the left lung with advanced emphysematous changes. Patient karan joseph positive for COVID-19, hence infectious diseases was consulted. CRP greater than 35, ferritin 491, procalcitonin 0.5, LDH 252. Reports cough, brownish sputum. Quit smoking 4 years ago. No international travel, no history of homelessness or incarceration. No known exposure to anyone with tuberculosis. Review of Systems: General: no fevers,chills or rigors HEENT: no new visual disturbance Respiratory: Cough, sputum, shortness of breath Cardiovascular: No chest pain, syncope Gastrointestinal: No nausea, vomiting or diarrhea Genitourinary: No dysuria or hematuria Musculoskeletal: No new or worsening neck pain or back pain Neurologic: No headaches, seizures Hematologic: No easy bruising or bleeding Endocrine: No night sweats or acute weight loss Skin: negative for rash, jaundice Psychiatric: No suicidal or homicidal ideation Past History Past Medical History: arthritis, COPD, GERD, hypertension, other (Leg weakness, Hiatal hernia, Thyroid problems) Past Surgical History: cholecystectomy, Other (Tubaligation, Bladder tact,) Social history: no significant social history Family history: hypertension Medications and Allergies Allergies Allergy/AdvReac Type Severity Reaction Status Date / Time doxycycline Allergy Hives Verified 09/11/21 17:38 Home Medications Medication Instructions Recorded Confirmed Last Taken Type Cyclobenzaprine 10 mg PO BID PRN 09/13/21 09/13/21 09/11/21 History Escitalopram [Lexapro] 20 mg PO DAILY 09/13/21 09/13/21 09/11/21 History Levothyroxine Sodium 125 mcg PO DAILY 09/13/21 09/13/21 09/11/21 History [Levothyroxine] Meloxicam [Mobic] 7.5 mg PO QDAY 09/13/21 09/13/21 Unknown History Metoprolol [Lopressor] 25 mg PO BID 09/13/21 09/13/21 09/11/21 History Montelukast [Singulair] 10 mg PO QPM 09/13/21 09/13/21 09/11/21 History buPROPion HCL [Bupropion HCl Sr] 150 mg PO BID 09/13/21 09/13/21 09/11/21 History Active Meds: Active Medications Acetaminophen (Acetaminophen 325 Mg Tab) 650 mg PO Q4H PRN PRN Reason: Pain MILD(1-3)/Fever >100.5/DEGROOT Last Admin: 09/13/21 04:18 Dose: 650 mg Albuterol (Albuterol 8.5 Gm Mdi Inhalation) 2 puff IH Q6HRT PRN PRN Reason: Shortness Of Breath Dexamethasone (Dexamethasone 4 Mg/Ml Vial) 8 mg IV DAILY [facility] Stop: 09/22/21 10:01 Last Admin: 09/13/21 10:33 Dose: 8 mg Famotidine (Famotidine 20 Mg Tab) 20 mg PO BID [facility] Last Admin: 09/13/21 10:33 Dose: 20 mg Guaifenesin (Guaifenesin Dm 200/20 Mg Oral Liqd 10 Ml) 10 ml PO Q4H PRN PRN Reason: Cough Last Admin: 09/13/21 04:19 Dose: 10 ml Heparin Sodium (Porcine) (Heparin 5,000 Unit/1 Ml Vial) 5,000 unit SUB-Q Q12HR [facility] Last Admin: 09/13/21 10:33 Dose: 5,000 unit Hydralazine HCl (Hydralazine 20 Mg/1 Ml Inj) 10 mg IV Q6H PRN PRN Reason: Blood Pressure Ceftriaxone Sodium (Rocephin/Ns 2 Gm/100 Ml) 2 gm in 100 mls @ 200 mls/hr IV Q24H BRANDAN; Protocol Stop: 09/15/21 23:59 Last Admin: 09/12/21 22:08 Dose: 200 mls/hr Remdesivir 100 mg/ Sodium (Chloride) 250 mls @ 500 mls/hr IV Q24HR@1400 [facility] Stop: 09/16/21 14:29 Vancomycin HCl 1,250 mg/ (Sodium Chloride) 275 mls @ 166.667 mls/hr IV ONCE ONE Stop: 09/13/21 15:38 Metronidazole (Metronidazole 500 Mg Tab) 500 mg PO Q8HR BRANDAN; Protocol Morphine Sulfate (Morphine 2 Mg/1 Ml Inj) 2 mg IV Q4H PRN PRN Reason: Pain, Moderate (4-6) Last Admin: 09/13/21 10:33 Dose: 2 mg Morphine Sulfate (Morphine 4 Mg/1 Ml Inj) 4 mg IV Q4H PRN PRN Reason: Pain , Severe (7-10) Last Admin: 09/13/21 06:38 Dose: 4 mg Ondansetron HCl (Ondansetron 4 Mg/2 Ml Inj) 4 mg IV Q8H PRN PRN Reason: Nausea And Vomiting Sodium Chloride (Sodium Chloride 0.9% 10 Ml Flush Syringe) 10 ml IV BID BRANDAN Last Admin: 09/13/21 10:34 Dose: 10 ml Sodium Chloride (Sodium Chloride 0.9% 10 Ml Flush Syringe) 10 ml IV PRN PRN PRN Reason: LINE FLUSH Sodium Chloride (Sodium Chloride 0.9% 50 Ml Ivpb) 50 ml IV Q24HR@1400 BR[facility] Stop: 09/16/21 14:01 Physical Examination - Physical Exam Narrative exam: Physical Exam: Constitutional: Alert, cooperative. No acute distress Head, Ears, Nose: Normocephalic, atraumatic. External ears, nose normal Eyes: Conjunctivae/corneas clear. No icterus. No ptosis. Neck: Supple, no meningeal signs Cardiovascular: S1, S2 + Respiratory: AE fair bilaterally GI: Soft, non-tender; bowel sounds normal. No peritoneal signs Musculoskeletal: No pedal edema, no cyanosis. Skin: No rash or abscess Hem/Lymphatic: No palpable cervical or supraclavicular nodes. No lymphangitis Psych: Mood ok. Affect normal Neurological: Awake, alert, oriented. No gross abnormality - Constitutional Vitals: Vital Signs Temp Pulse Resp BP Pulse Ox 98.9 F 69 20 121/66 98 09/13/21 04:44 09/13/21 04:44 09/13/21 10:33 09/13/21 04:44 09/13/21 05:39 Temperature -Last 24 Hours Temperature 98.9 F Temperature 98.9 F Results - Labs CBC & Chem 7: 09/13/21 07:49 09/13/21 07:49 Labs: Abnormal lab results 09/12/21 09/12/21 09/13/21 Range/Units 10:30 19:44 07:49 WBC 14.6 H (4.5-11.0) K/mm3 MCHC 35 H (30-34) % Seg Neuts % (Manual) 82.0 H (40.0-70.0) % Lymphocytes % (Manual) 8.0 L (13.4-35.0) % Eosinophils % (Manual) 6.0 H (0.0-4.3) % Seg Neutrophils # Man 12.0 H (1.8-7.7) K/mm3 Eosinophils # (Manual) 0.9 H (0.0-0.4) K/mm3 D-Dimer (0-234) ng/mlDDU Potassium (3.6-5.0) mmol/L BUN (7-17) mg/dL Glucose (65-100) mg/dL Ferritin (10.0-200.0) ng/mL Alkaline Phosphatase 163 H (35-129) units/L Lactate Dehydrogenase (91-180) units/L C-Reactive Protein (0.00-1.30) mg/dL Albumin 3.6 L (3.9-5) g/dL Coronavirus (PCR) Positive A (Negative) 09/13/21 09/13/21 09/13/21 Range/Units 07:49 07:49 07:49 WBC (4.5-11.0) K/mm3 MCHC (30-34) % Seg Neuts % (Manual) (40.0-70.0) % Lymphocytes % (Manual) (13.4-35.0) % Eosinophils % (Manual) (0.0-4.3) % Seg Neutrophils # Man (1.8-7.7) K/mm3 Eosinophils # (Manual) (0.0-0.4) K/mm3 D-Dimer 772.87 H (0-234) ng/mlDDU Potassium 3.3 L D (3.6-5.0) mmol/L BUN 6 L (7-17) mg/dL Glucose 119 H (65-100) mg/dL Ferritin 491.1 H (10.0-200.0) ng/mL Alkaline Phosphatase 149 H (35-129) units/L Lactate Dehydrogenase 252 H (91-180) units/L C-Reactive Protein > 35.00 H (0.00-1.30) mg/dL Albumin 3.6 L (3.9-5) g/dL Coronavirus (PCR) (Negative) - Imaging and Cardiology Chest x-ray: report reviewed, image reviewed (Bilateral pneumonia including right upper lobe cavitary lesion) CT scan - chest: report reviewed, image reviewed (Bilateral pneumonia including right upper lobe cavitary lesion) Assessment and Plan Cultures: SARS CoV2 PCR: Positive 09/12/2021 blood culture: No growth A/P: 56-year-old female with COPD, hypertension, chronic respiratory failure was admitted to the hospital with fever, cough, headache. Unvaccinated for COVID- 19. Chest x-ray revealed large cavitary mass in the right apex: #Sepsis: Likely secondary to below #Bilateral pneumonia including right upper lobe cavitary lesion: Background of severe emphysematous changes. Rule out fungal, mycobacterial disease. No TB risk factors as such, however certainly could be nontuberculous mycobacterial disease. #COVID-19: unlikely to be the cause of her cavitary disease. #Chronic hypoxic respiratory failure #COPD, former smoker: Quit about 4 years ago Recs: -Continue IV/PO Dexamethasone x 10 days -Continue IV remdesivir x 5 days -ceftriaxone switched to cefepime (cover for Pseudomonas due to underlying s tructural lung disease), azithromycin discontinued due to its potential mycobacterial activity. Started IV cefepime, PO Flagyl and IV vancomycin. D/C vancomycin if MRSA nasal PCR is negative -Given cavitary lesion, not a candidate for Actemra if respiratory status declines -Get sputum culture, sputum for AFB x3, sputum culture for fungus, TB QuantiFERON gold. No TB risk factors as such, however certainly could be nontuberculous mycobacterial disease due to her underlying structural lung disease. Skyler Mcgarry MD, FACP, [facility] ([facility]) O: [phone] F: [phone] C: [phone]
[2021-09-13] MEDS ORDERED: VANCOMYCIN PHARMACY TO DOSE IV SCH (13:00)
[2021-09-13] MEDS ORDERED: VANCOMYCIN 1,250 MG in SODIUM CHLORIDE 0.9% 250ML 250 ML IV ONE (14:00)
[2021-09-13] MEDS: CEFEPIME/NS 2 GM/100 ML 2 GM/100 ML BAG IV SCH ×2 (15:47→22:08)
[2021-09-13] MEDS: metroNIDAZOLE 500 MG TAB PO SCH ×2 (15:50→21:59)
[2021-09-13] MEDS: REMDESIVIR 100 MG in SODIUM CHLORIDE 0.9% 250ML 250 ML IV SCH (16:21)
[2021-09-13] MEDS: SODIUM CHLORIDE 0.9% 50 ML IVPB IV SCH (18:00)
[2021-09-13] MEDS: MONTELUKAST 10 MG TAB PO SCH (18:39)
[2021-09-13] MEDS ORDERED: ALBUTEROL 2.5 MG/3 ML NEBU IH ONE (21:33)
[2021-09-13] MEDS: buPROPion SR 150 MG TAB PO SCH (21:58)
[2021-09-13] MEDS: METOPROLOL TARTRATE 25 MG TAB PO SCH (22:01)
[2021-09-14] MEDS: VANCOMYCIN/NS 1 GM/250 ML 1 GM/250 ML BAG IV SCH ×2 (05:33→17:30)
[2021-09-14] MEDS: metroNIDAZOLE 500 MG TAB PO SCH ×2 (05:34→13:55)
[2021-09-14] MEDS: ACETAMINOPHEN 325 MG TAB PO PRN ×2 (05:35→13:55)
[2021-09-14] MEDS: ALBUTEROL 2.5 MG/3 ML NEBU IH SCH ×3 (08:09→20:30)
[2021-09-14] MEDS ORDERED: CYCLOBENZAPRINE 10 MG TAB PO PRN (08:10)
[2021-09-14 08:11] LABS: Alanine Aminotransferase 25 units/L (7-56); Albumin 3.3 g/dL (3.9-5); Blood Urea Nitrogen 8 mg/dL (7-17); Calcium 8.8 mg/dL (8.4-10.2); Hemolysis Index 1
--- NOTE | 2021-09-14 08:12 | Progress Note ---
Assessment and Plan Cultures: SARS CoV2 PCR: Positive 09/12/2021 blood culture: No growth A/P: 56-year-old female with COPD, hypertension, chronic respiratory failure was admitted to the hospital with fever, cough, headache. Unvaccinated for COVID- 19. Chest x-ray revealed large cavitary mass in the right apex: #Sepsis: Likely secondary to below #Bilateral pneumonia including right upper lobe cavitary lesion: Background of s evere emphysematous changes. Rule out fungal, mycobacterial disease. No TB risk factors as such, however certainly could be nontuberculous mycobacterial disease. CRP >35, procalcitonin 0.5, ferritin 491. #COVID-19: unlikely to be the cause of her cavitary disease. #Chronic hypoxic respiratory failure #COPD, former smoker: Quit about 4 years ago Recs: -Continue IV/PO Dexamethasone x 10 days -Continue IV remdesivir x 5 days -continue IV cefepime (cover for Pseudomonas due to underlying structural lung disease), continue PO Flagyl and IV vancomycin. D/C vancomycin if MRSA nasal PCR is negative -Given cavitary lesion, not a candidate for Actemra if respiratory status declines -f/u sputum culture, sputum for AFB x3, sputum culture for fungus, TB QuantiFERON gold. No TB risk factors as such, however certainly could be nontub erculous mycobacterial disease due to her underlying structural lung disease. Skyler Mcgarry MD, FACP, [facility] ([facility]) O: [phone] F: [phone] C: [phone] Subjective Date of service: 09/14/21 Interval history: Afebrile. Remains on nasal cannula at 3 L/min. CRP >35, procalcitonin 0.5, ferritin 491. Says her cough is better, she gave multiple sputum samples to the nurse. Objective - Exam Narrative Exam: Physical Exam: Constitutional: Alert, cooperative. No acute distress Head, Ears, Nose: Normocephalic, atraumatic. External ears, nose normal Eyes: Conjunctivae/corneas clear. No icterus. No ptosis. Neck: Supple, no meningeal signs Cardiovascular: S1, S2 + Respiratory: AE fair bilaterally GI: Soft, non-tender; bowel sounds normal. No peritoneal signs Musculoskeletal: No pedal edema, no cyanosis. Skin: No rash or abscess Hem/Lymphatic: No palpable cervical or supraclavicular nodes. No lymphangitis Psych: Mood ok. Affect normal Neurological: Awake, alert, oriented. No gross abnormality - Constitutional Vitals: Vital Signs Temp Pulse Resp BP Pulse Ox 98.4 F 95 H 20 158/81 94 09/14/21 05:55 09/14/21 05:55 09/14/21 05:55 09/14/21 05:55 09/14/21 05:55 Temperature -Last 24 Hours Temperature 98.4 F Temperature 98.0 F Temperature 98.2 F Temperature 98.2 F - Labs CBC & Chem 7: 09/13/21 07:49 09/14/21 07:24 Labs: Abnormal lab results 09/13/21 09/13/21 09/13/21 Range/Units 07:49 07:49 07:49 WBC 14.6 H (4.5-11.0) K/mm3 MCHC 35 H (30-34) % Seg Neuts % (Manual) 82.0 H (40.0-70.0) % Lymphocytes % (Manual) 8.0 L (13.4-35.0) % Eosinophils % (Manual) 6.0 H (0.0-4.3) % Seg Neutrophils # Man 12.0 H (1.8-7.7) K/mm3 Eosinophils # (Manual) 0.9 H (0.0-0.4) K/mm3 D-Dimer 772.87 H (0-234) ng/mlDDU Potassium 3.3 L D (3.6-5.0) mmol/L BUN 6 L (7-17) mg/dL Glucose 119 H (65-100) mg/dL Ferritin (10.0-200.0) ng/mL Alkaline Phosphatase 149 H (35-129) units/L Lactate Dehydrogenase 252 H (91-180) units/L C-Reactive Protein > 35.00 H (0.00-1.30) mg/dL Albumin 3.6 L (3.9-5) g/dL 09/13/21 Range/Units 07:49 WBC (4.5-11.0) K/mm3 MCHC (30-34) % Seg Neuts % (Manual) (40.0-70.0) % Lymphocytes % (Manual) (13.4-35.0) % Eosinophils % (Manual) (0.0-4.3) % Seg Neutrophils # Man (1.8-7.7) K/mm3 Eosinophils # (Manual) (0.0-0.4) K/mm3 D-Dimer (0-234) ng/mlDDU Potassium (3.6-5.0) mmol/L BUN (7-17) mg/dL Glucose (65-100) mg/dL Ferritin 491.1 H (10.0-200.0) ng/mL Alkaline Phosphatase (35-129) units/L Lactate Dehydrogenase (91-180) units/L C-Reactive Protein (0.00-1.30) mg/dL Albumin (3.9-5) g/dL
[2021-09-14 08:18] LABS: BUN/Creatinine Ratio 13
[2021-09-14] MEDS: buPROPion SR 150 MG TAB PO SCH (09:01)
[2021-09-14] MEDS: HEPARIN 5,000 UNIT/1 ML VIAL SUB-Q SCH (09:01)
[2021-09-14] MEDS: dexAMETHasone 4 MG/ML VIAL IV SCH (09:01)
[2021-09-14] MEDS: LEVOTHYROXINE 125 MCG TAB PO SCH (09:02)
[2021-09-14] MEDS: ESCITALOPRAM 10 MG TAB PO SCH (09:02)
[2021-09-14] MEDS: CEFEPIME/NS 2 GM/100 ML 2 GM/100 ML BAG IV SCH (09:02)
[2021-09-14] MEDS: METOPROLOL TARTRATE 25 MG TAB PO SCH (09:02)
[2021-09-14] MEDS: FAMOTIDINE 20 MG TAB PO SCH (09:02)
[2021-09-14] MEDS: guaiFENesin DM 200/20 MG ORAL LIQD 10 ML PO PRN (13:55)
[2021-09-14] MEDS: REMDESIVIR 100 MG in SODIUM CHLORIDE 0.9% 250ML 250 ML IV SCH (13:55)
[2021-09-14] MEDS: SODIUM CHLORIDE 0.9% 50 ML IVPB IV SCH (13:55)
--- NOTE | 2021-09-14 15:59 | Progress Note ---
Assessment and Plan 56-year-old female with COPD, hypertension, chronic respiratory failure was admitted to the hospital with fever, cough, headache. Unvaccinated for COVID- 19. Chest x-ray revealed large cavitary mass in the right apex: She also positive for COVID-19. Daily clinical course: 09/12/2021; Disposition ;follow hernandez PCR, follow cultures Follow consultants evaluation recommendations 09/13: Positive for COVID-19, initiated on dexamethasone and remdesivir. CT chest with contrast suggestive for cavitary mass lesion on the right lung and left upper lobe. Pulmonary consulted, will follow recommendation. given COVID positive state, unable to bronch at this time. Consulted ID: Follow recommendation 09/14/21: -Continue IV/PO Dexamethasone x 10 days -Continue IV remdesivir x 5 days -Change antibiotic to IV cefepime (cover for Pseudomonas due to underlying structural lung disease), PO Flagyl and IV vancomycin by ID. -f/u sputum culture, sputum for AFB x3, sputum culture for fungus, TB QuantiFERON gold. No TB risk factors as such, however certainly could be nontuberculous mycobacterial disease due to her underlying structural lung disease. f/u pending sputum study Assessment and plan: --Sepsis, due to underlying pneumonia, present on admission -- Positive COVID-19/COVID-19 pneumonia Isolation precautions, continue oxygen Initiated on dexamethasone and prednisone Consulted ID, follow inflammatory markers, procalcitonin level Continue empiric antibiotics for now -- Cavitating mass in right upper lung lobe Oxygen by nasal cannula 3 L/min. DuoNeb's Ordered CT scan of the chest. Follow pulmonary recommendation CT chest with contrast ; large irregular cavitary lesion near the right lung apex although a cavitating mass cannot be excluded suspect this could be inflammatory in nature such as fungal infection or tuberculosis there is also consolidation lateral left lower lobe suggestive of pneumonia There is an irregular spiculated mass or scarring in the left upper lobe advanced emphysematous changes Mildly enlarged mediastinal lymph nodes could be reactive --GERD (gastroesophageal reflux disease) Pepcid 20 mg p.o. twice daily. We continue the home medication -- Hypertension; moderate control Continue current antihypertensives -metoprolol 25mg bid and as needed hydralazine --History of depression, continue home dose of bupropion and Lexapro -- Hypothyroidism, continue levothyroxine -- COPD (chronic obstructive pulmonary disease) Oxygen by nasal cannula 3 L/min. DuoNeb nebulizer every 4 hours. Albuterol via nebulizer every 4 hours as needed. Pulmonary following --Full CODE STATUS --DVT/GI prophylaxis Heparin 5000 units subcu every 12 hours DVT prophylaxis Pepcid 20 mg p.o. twice daily for GI prophylaxis. Closely monitor the patient and adjust the management as needed Plan of care reviewed with the patient and her nurse Subjective Date of service: 09/14/21 Interval history: Patient seen and examined. Medical records and medication list reviewed. No acute event overnight noted by the RN. Patient complains of cough and difficulty breathing even on rest. Patient is tolerating diet. She is on 2-3 L nasal cannula O2 Discussed plan of care at bedside with patient. Objective - Exam Narrative Exam: Limited physical exam due to COVID-19 pandemic to minimize transmission of the disease and to preserve PPE. Vital reviewed and stable. GENERAL: Elderly white female lying on bed appeared to be in no discomfort. HEENT: Normocephalic. Atraumatic. NECK: Supple. CHEST/LUNGS: breathing nonlabored. On nasal cannula HEART/CARDIOVASCULAR: Heart rate stable on telemetry ABDOMEN: Visibly not distended SKIN: There is no rash NEURO: No focal motor deficit. Follows command. MUSCULOSKELETAL: No joint effusion EXTRIMITY: No swelling, no cyanosis or clubbing. PSYCH: Cooperative. - Constitutional Vitals: Vital Signs - 12hr 09/14/21 09/14/21 09/14/21 05:55 08:05 09:02 Temperature 98.4 F Pulse Rate 95 H 84 Pulse Rate [ 74 Anterior Bilateral Throughout] Respiratory 20 Rate Respiratory 18 Rate [Anterior Bilateral Throughout] Respiratory Rate [Head] Blood Pressure 127/82 Blood Pressure 158/81 [Right] O2 Sat by Pulse 94 Oximetry 09/14/21 09/14/21 09/14/21 09:03 09:54 10:00 Temperature 98.2 F Pulse Rate 84 Pulse Rate [ Anterior Bilateral Throughout] Respiratory 20 Rate Respiratory Rate [Anterior Bilateral Throughout] Respiratory 18 Rate [Head] Blood Pressure Blood Pressure 127/82 [Right] O2 Sat by Pulse 95 98 Oximetry 09/14/21 09/14/21 09/14/21 11:22 12:00 13:55 Temperature 97.9 F Pulse Rate 76 Pulse Rate [ Anterior Bilateral Throughout] Respiratory 20 24 18 Rate Respiratory Rate [Anterior Bilateral Throughout] Respiratory Rate [Head] Blood Pressure 136/82 Blood Pressure [Right] O2 Sat by Pulse 95 95 Oximetry 09/14/21 09/14/21 14:00 14:55 Temperature Pulse Rate Pulse Rate [ 86 Anterior Bilateral Throughout] Respiratory 18 Rate Respiratory 18 Rate [Anterior Bilateral Throughout] Respiratory Rate [Head] Blood Pressure Blood Pressure [Right] O2 Sat by Pulse Oximetry - Labs CBC & Chem 7: 09/16/21 06:32 09/15/21 09:58 Labs: Abnormal lab results 09/14/21 Range/Units 07:24 Potassium 3.4 L (3.6-5.0) mmol/L Alkaline Phosphatase 134 H (35-129) units/L Albumin 3.3 L (3.9-5) g/dL
--- NOTE | 2021-09-14 18:23 | Progress Note ---
Assessment and Plan 56 y/o with history of COPD, chronic respiratory failure admitted with abnormal CXR of chest, elevated white count and hypokalemia. 09/14/21: Agree with ID assessment and recs. Follow up sputum. Suggest repeat CBC to evaluate white count. Will continue to follow. Prone as tolerated during the day and sleep prone at night. Puffer therapy only. 09/13/21: given COVID positive state, unable to bronch at this time. Induced sputum if possible. Agree with ID consult. Hopeful they will broaden abx therapy. Continue supplemental O2. Guarded prognosis. 1. CT chest ordered early am but still not done yet, agree this should be done 2. Agree with Gabbie for now 3. If able to produce sputum, will need this sent as well. Subjective Date of service: 09/14/21 Interval history: Stable on 2 liters. Reviewed ID note from yesterday. Objective Vital Signs - 12hr 09/14/21 09/14/21 09/14/21 08:05 09:02 09:03 Temperature 98.2 F Pulse Rate 84 84 Pulse Rate [ 74 Anterior Bilateral Throughout] Respiratory 20 Rate Respiratory 18 Rate [Anterior Bilateral Throughout] Respiratory Rate [Head] Blood Pressure 127/82 Blood Pressure 127/82 [Right] O2 Sat by Pulse 95 Oximetry 09/14/21 09/14/21 09/14/21 09:54 10:00 11:22 Temperature Pulse Rate Pulse Rate [ Anterior Bilateral Throughout] Respiratory 20 Rate Respiratory Rate [Anterior Bilateral Throughout] Respiratory 18 Rate [Head] Blood Pressure Blood Pressure [Right] O2 Sat by Pulse 98 95 Oximetry 09/14/21 09/14/21 09/14/21 12:00 13:55 14:00 Temperature 97.9 F Pulse Rate 76 Pulse Rate [ 86 Anterior Bilateral Throughout] Respiratory 24 18 Rate Respiratory 18 Rate [Anterior Bilateral Throughout] Respiratory Rate [Head] Blood Pressure 136/82 Blood Pressure [Right] O2 Sat by Pulse 95 Oximetry 09/14/21 14:55 Temperature Pulse Rate Pulse Rate [ Anterior Bilateral Throughout] Respiratory 18 Rate Respiratory Rate [Anterior Bilateral Throughout] Respiratory Rate [Head] Blood Pressure Blood Pressure [Right] O2 Sat by Pulse Oximetry CBC and BMP: 09/13/21 07:49 09/14/21 07:24 ABG, PT/INR, D-dimer: PT/INR, D-dimer D-Dimer 772.87 ng/mlDDU (0-234) H 09/13/21 07:49 Abnormal lab findings: Abnormal Labs 09/11/21 09/11/21 09/11/21 18:27 18:27 Unknown WBC 20.2 H Hgb 14.9 H Hct 44.9 H MCHC Seg Neuts % (Manual) 84.0 H Lymphocytes % (Manual) 9.0 L Eosinophils % (Manual) Seg Neutrophils # Man 17.0 H Monocytes # (Manual) 1.0 H Eosinophils # (Manual) D-Dimer Sodium 136 L Potassium 3.3 L Chloride 96.2 L BUN 6 L Glucose Ferritin Alkaline Phosphatase 170 H Lactate Dehydrogenase C-Reactive Protein Total Protein 8.6 H Albumin Urine pH 8.0 H Urine WBC (Auto) 30.0 H Coronavirus (PCR) 09/12/21 09/12/21 09/13/21 10:30 19:44 07:49 WBC 14.6 H Hgb Hct MCHC 35 H Seg Neuts % (Manual) 82.0 H Lymphocytes % (Manual) 8.0 L Eosinophils % (Manual) 6.0 H Seg Neutrophils # Man 12.0 H Monocytes # (Manual) Eosinophils # (Manual) 0.9 H D-Dimer Sodium Potassium Chloride BUN Glucose Ferritin Alkaline Phosphatase 163 H Lactate Dehydrogenase C-Reactive Protein Total Protein Albumin 3.6 L Urine pH Urine WBC (Auto) Coronavirus (PCR) Positive A 09/13/21 09/13/21 09/13/21 07:49 07:49 07:49 WBC Hgb Hct MCHC Seg Neuts % (Manual) Lymphocytes % (Manual) Eosinophils % (Manual) Seg Neutrophils # Man Monocytes # (Manual) Eosinophils # (Manual) D-Dimer 772.87 H Sodium Potassium 3.3 L D Chloride BUN 6 L Glucose 119 H Ferritin 491.1 H Alkaline Phosphatase 149 H Lactate Dehydrogenase 252 H C-Reactive Protein > 35.00 H Total Protein Albumin 3.6 L Urine pH Urine WBC (Auto) Coronavirus (PCR) 09/14/21 07:24 WBC Hgb Hct MCHC Seg Neuts % (Manual) Lymphocytes % (Manual) Eosinophils % (Manual) Seg Neutrophils # Man Monocytes # (Manual) Eosinophils # (Manual) D-Dimer Sodium Potassium 3.4 L Chloride BUN Glucose Ferritin Alkaline Phosphatase 134 H Lactate Dehydrogenase C-Reactive Protein Total Protein Albumin 3.3 L Urine pH Urine WBC (Auto) Coronavirus (PCR)
[2021-09-14] MEDS: oxyCODONE /ACETAMINOPHEN 5-325MG TAB PO PRN (18:58)
[2021-09-14] MEDS: MONTELUKAST 10 MG TAB PO SCH (18:59)
[2021-09-15] MEDS: buPROPion SR 150 MG TAB PO SCH ×3 (00:38→22:02)
[2021-09-15] MEDS: metroNIDAZOLE 500 MG TAB PO SCH ×4 (00:38→22:02)
[2021-09-15] MEDS: FAMOTIDINE 20 MG TAB PO SCH ×3 (00:38→22:02)
[2021-09-15] MEDS: HEPARIN 5,000 UNIT/1 ML VIAL SUB-Q SCH ×3 (00:39→22:02)
[2021-09-15] MEDS: METOPROLOL TARTRATE 25 MG TAB PO SCH ×3 (00:43→22:01)
[2021-09-15] MEDS: CEFEPIME/NS 2 GM/100 ML 2 GM/100 ML BAG IV SCH ×3 (00:44→22:01)
[2021-09-15] MEDS: VANCOMYCIN/NS 1 GM/250 ML 1 GM/250 ML BAG IV SCH (05:18)
[2021-09-15] MEDS: ALBUTEROL 2.5 MG/3 ML NEBU IH SCH ×3 (07:30→20:14)
[2021-09-15] MEDS: guaiFENesin DM 200/20 MG ORAL LIQD 10 ML PO PRN ×2 (09:18→17:01)
[2021-09-15] MEDS: oxyCODONE /ACETAMINOPHEN 5-325MG TAB PO PRN ×2 (09:19→17:01)
[2021-09-15] MEDS: ESCITALOPRAM 10 MG TAB PO SCH (09:19)
[2021-09-15] MEDS: LEVOTHYROXINE 125 MCG TAB PO SCH (09:19)
[2021-09-15] MEDS: dexAMETHasone 4 MG/ML VIAL IV SCH (09:20)
[2021-09-15 11:07] LABS: Alanine Aminotransferase 17 units/L (7-56); Albumin 3.3 g/dL (3.9-5); Blood Urea Nitrogen 8 mg/dL (7-17); Calcium 8.8 mg/dL (8.4-10.2); Hemolysis Index 5
--- NOTE | 2021-09-15 11:13 | Progress Note ---
Assessment and Plan 56 y/o with history of COPD, chronic respiratory failure admitted with abnormal CXR of chest, elevated white count and hypokalemia. 09/15/21: No new pulmonary recs currently. Please see below from 09/14/21. 09/14/21: Agree with ID assessment and recs. Follow up sputum. Suggest repeat CBC to evaluate white count. Will continue to follow. Prone as tolerated during the day and sleep prone at night. Puffer therapy only. 09/13/21: given COVID positive state, unable to bronch at this time. Induced sputum if possible. Agree with ID consult. Hopeful they will broaden abx therapy. Continue supplemental O2. Guarded prognosis. 1. CT chest ordered early am but still not done yet, agree this should be done 2. Agree with Gabbie for now 3. If able to produce sputum, will need this sent as well. Subjective Date of service: 09/15/21 Interval history: No acute events. sputum culture negative. Objective Vital Signs - 12hr 09/15/21 09/15/21 09/15/21 00:34 00:35 00:43 Temperature Pulse Rate 77 77 Pulse Rate [ Anterior Bilateral Throughout] Respiratory Rate Respiratory Rate [Anterior Bilateral Throughout] Blood Pressure 127/74 127/74 O2 Sat by Pulse 96 Oximetry 09/15/21 09/15/21 09/15/21 04:24 06:41 07:30 Temperature 98.0 F Pulse Rate 71 Pulse Rate [ 75 Anterior Bilateral Throughout] Respiratory 20 Rate Respiratory 18 Rate [Anterior Bilateral Throughout] Blood Pressure 148/85 O2 Sat by Pulse 95 99 96 Oximetry 09/15/21 09:19 Temperature Pulse Rate Pulse Rate [ Anterior Bilateral Throughout] Respiratory 18 Rate Respiratory Rate [Anterior Bilateral Throughout] Blood Pressure O2 Sat by Pulse Oximetry CBC and BMP: 09/13/21 07:49 09/15/21 09:58 ABG, PT/INR, D-dimer: PT/INR, D-dimer D-Dimer 772.87 ng/mlDDU (0-234) H 09/13/21 07:49 Abnormal lab findings: Abnormal Labs 09/11/21 09/11/21 09/11/21 18:27 18:27 Unknown WBC 20.2 H Hgb 14.9 H Hct 44.9 H MCHC Seg Neuts % (Manual) 84.0 H Lymphocytes % (Manual) 9.0 L Eosinophils % (Manual) Seg Neutrophils # Man 17.0 H Monocytes # (Manual) 1.0 H Eosinophils # (Manual) D-Dimer Sodium 136 L Potassium 3.3 L Chloride 96.2 L BUN 6 L Glucose Ferritin Alkaline Phosphatase 170 H Lactate Dehydrogenase C-Reactive Protein Total Protein 8.6 H Albumin Urine pH 8.0 H Urine WBC (Auto) 30.0 H Coronavirus (PCR) 09/12/21 09/12/21 09/13/21 10:30 19:44 07:49 WBC 14.6 H Hgb Hct MCHC 35 H Seg Neuts % (Manual) 82.0 H Lymphocytes % (Manual) 8.0 L Eosinophils % (Manual) 6.0 H Seg Neutrophils # Man 12.0 H Monocytes # (Manual) Eosinophils # (Manual) 0.9 H D-Dimer Sodium Potassium Chloride BUN Glucose Ferritin Alkaline Phosphatase 163 H Lactate Dehydrogenase C-Reactive Protein Total Protein Albumin 3.6 L Urine pH Urine WBC (Auto) Coronavirus (PCR) Positive A 09/13/21 09/13/21 09/13/21 07:49 07:49 07:49 WBC Hgb Hct MCHC Seg Neuts % (Manual) Lymphocytes % (Manual) Eosinophils % (Manual) Seg Neutrophils # Man Monocytes # (Manual) Eosinophils # (Manual) D-Dimer 772.87 H Sodium Potassium 3.3 L D Chloride BUN 6 L Glucose 119 H Ferritin 491.1 H Alkaline Phosphatase 149 H Lactate Dehydrogenase 252 H C-Reactive Protein > 35.00 H Total Protein Albumin 3.6 L Urine pH Urine WBC (Auto) Coronavirus (PCR) 09/14/21 09/15/21 07:24 09:58 WBC Hgb Hct MCHC Seg Neuts % (Manual) Lymphocytes % (Manual) Eosinophils % (Manual) Seg Neutrophils # Man Monocytes # (Manual) Eosinophils # (Manual) D-Dimer Sodium Potassium 3.4 L 3.5 L Chloride BUN Glucose 118 H Ferritin Alkaline Phosphatase 134 H 163 H Lactate Dehydrogenase C-Reactive Protein Total Protein Albumin 3.3 L 3.3 L Urine pH Urine WBC (Auto) Coronavirus (PCR)
[2021-09-15 11:16] LABS: BUN/Creatinine Ratio 11
--- NOTE | 2021-09-15 13:11 | Progress Note ---
Assessment and Plan Cultures: SARS CoV2 PCR: Positive 09/12/2021 blood culture: No growth 09/13/2021 sputum culture: Usual respiratory ponce MRSA nasal PCR: Negative A/P: 56-year-old female with COPD, hypertension, chronic respiratory failure was admitted to the hospital with fever, cough, headache. Unvaccinated for COVID- 19. Chest x-ray revealed large cavitary mass in the right apex: #Sepsis: Likely secondary to below #Bilateral pneumonia including right upper lobe cavitary lesion: Background of severe emphysematous changes. Rule out fungal, mycobacterial disease. No TB risk factors as such, however certainly could be nontuberculous mycobacterial disease. CRP >35, procalcitonin 0.5, ferritin 491. #COVID-19: unlikely to be the cause of her cavitary disease. #Chronic hypoxic respiratory failure #COPD, former smoker: Quit about 4 years ago Recs: -Continue IV/PO Dexamethasone x 10 days -Continue IV remdesivir x 5 days -continue IV cefepime (cover for Pseudomonas due to underlying structural lung disease), continue PO Flagyl -D/C vancomycin since MRSA nasal PCR is negative -Given cavitary lesion, not a candidate for Actemra if respiratory status declines -f/u sputum culture, sputum for AFB x3, sputum culture for fungus, TB QuantiFERON gold. No TB risk factors as such, however certainly could be nontuberculous mycobacterial disease due to her underlying structural lung disease. Discussed with micro lab, they have the 3 sputum AFB samples in process Skyler Mcgarry MD, FACGiulia, [facility] O: [phone] F: [phone] C: [phone] Subjective Date of service: 09/15/21 Interval history: Afebrile. Remains on oxygen by nasal cannula at 3 L/min. Objective - Exam Narrative Exam: Physical Exam: deferred to minimize risk of transmission - Constitutional Vitals: Vital Signs Temp Pulse Resp BP Pulse Ox 98.0 F 75 18 148/85 95 09/15/21 06:41 09/15/21 07:30 09/15/21 09:19 09/15/21 06:41 09/15/21 11:49 Temperature -Last 24 Hours Temperature 98.0 F Temperature 98.0 F Temperature 97.9 F - Labs CBC & Chem 7: 09/13/21 07:49 09/15/21 09:58 Labs: Abnormal lab results 09/15/21 Range/Units 09:58 Potassium 3.5 L (3.6-5.0) mmol/L Glucose 118 H (65-100) mg/dL Alkaline Phosphatase 163 H (35-129) units/L Albumin 3.3 L (3.9-5) g/dL
[2021-09-15] MEDS: SODIUM CHLORIDE 0.9% 50 ML IVPB IV SCH (14:20)
[2021-09-15] MEDS: REMDESIVIR 100 MG in SODIUM CHLORIDE 0.9% 250ML 250 ML IV SCH (14:20)
--- NOTE | 2021-09-15 16:16 | Progress Note ---
Assessment and Plan 56-year-old female with COPD, hypertension, chronic respiratory failure was admitted to the hospital with fever, cough, headache. Unvaccinated for COVID- 19. Chest x-ray revealed large cavitary mass in the right apex: She also positive for COVID-19. Daily clinical course: 09/12/2021; Disposition ;follow hernandez PCR, follow cultures Follow consultants evaluation recommendations 09/13: Positive for COVID-19, initiated on dexamethasone and remdesivir. CT chest with contrast suggestive for cavitary mass lesion on the right lung and left upper lobe. Pulmonary consulted, will follow recommendation. given COVID positive state, unable to bronch at this time. Consulted ID: Follow recommendation 09/14/21: -Continue IV/PO Dexamethasone x 10 days -Continue IV remdesivir x 5 days -Change antibiotic to IV cefepime (cover for Pseudomonas due to underlying structural lung disease), PO Flagyl and IV vancomycin by ID. -f/u sputum culture, sputum for AFB x3, sputum culture for fungus, TB QuantiFERON gold. No TB risk factors as such, however certainly could be nontuberculous mycobacterial disease due to her underlying structural lung disease. f/u pending sputum study 09/15/21; Discussed with ID and reviewed her records from [place]. -Upon review of her outside records, she had COVID-19 in February 2021 complicated by pneumothorax, requiring ICU stay, mechanical ventilation, treated with steroids, remdesivir and Actemra. - She was then hospitalized at [facility] in April 2021 with complaints of shortness of breath, found to have right upper lobe cavitary lesions. She underwent bronchoscopy and BAL there, BAL cytology showed marked acute inflammatory cells, no malignant cells identified. PAS stains showed occasional fungal hyphae, AFB stains for mycobacteria were negative. Transbronchial biopsy showed benign bronchial mucosa and submucosa with moderate acute and chronic inflammatory changes with area of necrosis and acute inflammatory infiltrate consistent with abscess. PAS stain showed occasional fungal hyphae. TB QuantiFERON gold: Negative. ANUJ: Negative. SSA/SSB, SM antibody, SCL 70 antibody: Negative, ANCA screen: Negative, TIERRA level: 68 (normal). Culture was positive for Aspergillus, she was given 3 to 6 months of voriconazole. Patient did not follow-up with ID after that. It is unclear if she was compliant with her therapy. Her mixer diamond powder is Dr. Feliz at [facility]. - More recently, she was again hospitalized at [facility] in July [address] with right upper lobe cavitation and severe emphysematous changes. Was seen by Dr. Guerrero who recommended no additional work up. - Upon review of her CT images from [place] in May [address] images here, there does not seem to be any concern for disease progression. Considering this, ID recommended no additional work up. cont to follow clinically. last dose of remdesivir tomorrow. Assessment and plan: --Sepsis, due to underlying pneumonia, present on admission -- Positive COVID-19/COVID-19 pneumonia Isolation precautions, continue oxygen Initiated on dexamethasone and prednisone Consulted ID, follow inflammatory markers, procalcitonin level Continue empiric antibiotics for now -- Cavitating mass in right upper lung lobe, chronic, present since April Oxygen by nasal cannula 3 L/min. DuoNeb's Ordered CT scan of the chest. Follow pulmonary recommendation CT chest with contrast ; large irregular cavitary lesion near the right lung apex although a cavitating mass cannot be excluded suspect this could be inflammatory in nature such as fungal infection or tuberculosis there is also consolidation lateral left lower lobe suggestive of pneumonia There is an irregular spiculated mass or scarring in the left upper lobe advanced emphysematous changes Mildly enlarged mediastinal lymph nodes could be reactive --GERD (gastroesophageal reflux disease) Pepcid 20 mg p.o. twice daily. We continue the home medication -- Hypertension; moderate control Continue current antihypertensives -metoprolol 25mg bid and as needed hydra lazine --History of depression, continue home dose of bupropion and Lexapro -- Hypothyroidism, continue levothyroxine -- COPD (chronic obstructive pulmonary disease) Oxygen by nasal cannula 3 L/min. DuoNeb nebulizer every 4 hours. Albuterol via nebulizer every 4 hours as needed. Pulmonary following --Full CODE STATUS --DVT/GI prophylaxis Heparin 5000 units subcu every 12 hours DVT prophylaxis Pepcid 20 mg p.o. twice daily for GI prophylaxis. Closely monitor the patient and adjust the management as needed Plan of care reviewed with the patient and her nurse Subjective Date of service: 09/15/21 Interval history: Patient seen and examined. Medical records and medication list reviewed. No acute event overnight noted by the RN. Patient complains of cough and difficulty breathing even on rest. Patient is tolerating diet. She is on 2-3 L nasal cannula O2 Discussed plan of care at bedside with patient and also with ID. Objective - Exam Narrative Exam: Limited physical exam due to COVID-19 pandemic to minimize transmission of the disease and to preserve PPE. Vital reviewed and stable. GENERAL: Elderly white female lying on bed appeared to be in no discomfort. HEENT: Normocephalic. Atraumatic. NECK: Supple. CHEST/LUNGS: breathing nonlabored. On nasal cannula HEART/CARDIOVASCULAR: Heart rate stable on telemetry ABDOMEN: Visibly not distended SKIN: There is no rash NEURO: No focal motor deficit. Follows command. MUSCULOSKELETAL: No joint effusion EXTRIMITY: No swelling, no cyanosis or clubbing. PSYCH: Cooperative. - Constitutional Vitals: Vital Signs - 12hr 09/15/21 09/15/21 09/15/21 04:24 06:41 07:30 Temperature 98.0 F Pulse Rate 71 Pulse Rate [ 75 Anterior Bilateral Throughout] Respiratory 20 Rate Respiratory 18 Rate [Anterior Bilateral Throughout] Blood Pressure 148/85 O2 Sat by Pulse 95 99 96 Oximetry 09/15/21 09/15/21 09/15/21 09:17 09:19 11:08 Temperature 98.0 F 97.8 F Pulse Rate 80 75 Pulse Rate [ Anterior Bilateral Throughout] Respiratory 20 18 22 Rate Respiratory Rate [Anterior Bilateral Throughout] Blood Pressure 126/67 135/75 O2 Sat by Pulse 95 96 Oximetry 09/15/21 09/15/21 11:49 15:44 Temperature Pulse Rate Pulse Rate [ 71 Anterior Bilateral Throughout] Respiratory Rate Respiratory 20 Rate [Anterior Bilateral Throughout] Blood Pressure O2 Sat by Pulse 95 Oximetry - Labs CBC & Chem 7: 09/16/21 06:32 09/15/21 09:58 Labs: Abnormal lab results 09/15/21 Range/Units 09:58 Potassium 3.5 L (3.6-5.0) mmol/L Glucose 118 H (65-100) mg/dL Alkaline Phosphatase 163 H (35-129) units/L Albumin 3.3 L (3.9-5) g/dL
[2021-09-15] MEDS: MONTELUKAST 10 MG TAB PO SCH (17:01)
[2021-09-16] MEDS: oxyCODONE /ACETAMINOPHEN 5-325MG TAB PO PRN ×3 (03:41→20:04)
[2021-09-16] MEDS: metroNIDAZOLE 500 MG TAB PO SCH ×3 (05:09→21:18)
[2021-09-16 07:32] LABS: Hematocrit 40.1 % (30.3-42.9); Hemoglobin 13.2 gm/dl (10.1-14.3); Mean Corpuscular HGB Conc 33 % (30-34); Mean Corpuscular Volume 91 fl (79-97); Platelet Count 384 K/mm3 (140-440); Red Blood Count 4.43 M/mm3 (3.65-5.03); Red Cell Distribution Width 14.2 % (13.2-15.2)
[2021-09-16 08:18] LABS: Basophils % (Manual) 0 % (0.0-1.8); Platelet Estimate Consistent w Auto; RBC Morphology Normal; Total Cells Counted 100
[2021-09-16] MEDS: ALBUTEROL 2.5 MG/3 ML NEBU IH SCH ×2 (09:11→14:00)
--- NOTE | 2021-09-16 10:47 | Progress Note ---
Assessment and Plan Cultures: SARS CoV2 PCR: Positive 09/12/2021 blood culture: No growth 09/13/2021 sputum culture: Usual respiratory ponce, mold MRSA nasal PCR: Negative A/P: 56-year-old female with COPD, hypertension, chronic respiratory failure was admitted to the hospital with fever, cough, headache. Unvaccinated for COVID- 19. 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 Upon review of her outside records, she had COVID-19 in February 2021 complicated by pneumothorax, requiring ICU stay, mechanical ventilation, treated with steroids, remdesivir and Actemra admitted to the hospital with complaints of shortness of breath and headache. She was then hospitalized at [facility] in April 2021 with complaints of shortness of breath, found to have right upper lobe cavitary lesions. She underwent bronchoscopy and BAL there, BAL cytology showed marked acute inflammatory cells, no malignant cells identified. PAS stains showed occasional fungal hyphae, AFB stains for mycobacteria were negative. Transbronchial biopsy showed benign bronchial mucosa and submucosa with moderate acute and chronic inflammatory changes with area of necrosis and acute inflammatory infiltrate consistent with abscess. PAS stain showed occasional fungal hyphae. TB QuantiFERON gold: Negative. ANUJ: Negative. SSA/SSB, SM antibody, SCL 70 antibody: Negative, ANCA screen: Negative, TIERRA level: 68 (nor mal). Culture was positive for Aspergillus, she was given 3 to 6 months of voriconazole. Patient did not follow-up with ID after that. It is unclear if she was compliant with her therapy. Her systems development consultant is Dr. Feliz at [facility]. More recently, she was again hospitalized at [facility] in July [address] with right upper lobe cavitation and severe emphysematous changes. Was seen by Dr. Guerrero who recommended no additional work up. Upon review of her CT images from [place] in May [address] images here, there does not seem to be any concern for disease progression. Considering this, would complete current COVID-19 therapy and then discharge her to follow up outpt with her systems development consultant Dr. Feliz. Patient unable to tell me if she took her voriconazole course. #COVID-19: unlikely to be the cause of her cavitary disease. #Chronic hypoxic respiratory failure #COPD, former smoker: Quit about 4 years ago Recs: -PO voriconazole 200 mg BID started, recommend at least 6 months of therapy with outpatient pulm and ID clinic follow-up -Since she is at her baseline oxygen and growth of mold on her sputum, will discontinue Decadron -Complete 5 days of cefepime and Flagyl -ID clinic follow up in a month, construction scheduler notified D/W Dr. Macie Mcgarry MD, FACP, [facility] O: [phone] F: [phone] C: [phone] Subjective Date of service: 09/16/21 Interval history: Afebrile. Remains on oxygen by nasal cannula at 3 L/min. Denies any new complaints. Objective - Exam Narrative Exam: Physical Exam: Constitutional: Alert, cooperative. No acute distress Head, Ears, Nose: Normocephalic, atraumatic. External ears, nose normal Eyes: Conjunctivae/corneas clear. No icterus. No ptosis. Neck: Supple, no meningeal signs Cardiovascular: S1, S2 + Respiratory: Few rhonchi GI: Soft, non-tender; bowel sounds normal. No peritoneal signs Musculoskeletal: No pedal edema, no cyanosis. Skin: No rash or abscess Hem/Lymphatic: No palpable cervical or supraclavicular nodes. No lymphangitis Psych: Mood ok. Affect normal Neurological: Awake, alert, oriented. No gross abnormality - Constitutional Vitals: Vital Signs Temp Pulse Resp BP Pulse Ox 98.3 F 79 16 137/94 98 09/16/21 05:42 09/16/21 05:42 09/16/21 05:42 09/16/21 05:42 09/16/21 05:42 Temperature -Last 24 Hours Temperature 98.3 F Temperature 97.3 F Temperature 98.1 F Temperature 97.8 F - Labs CBC & Chem 7: 09/16/21 06:32 09/15/21 09:58 Labs: Abnormal lab results 09/15/21 09/16/21 09/16/21 Range/Units 09:58 06:32 06:32 WBC 13.3 H (4.5-11.0) K/mm3 Monocytes % (Manual) 10.0 H (0.0-7.3) % Eosinophils % (Manual) 7.0 H (0.0-4.3) % Seg Neutrophils # Man 9.0 H (1.8-7.7) K/mm3 Monocytes # (Manual) 1.3 H (0.0-0.8) K/mm3 Eosinophils # (Manual) 0.9 H (0.0-0.4) K/mm3 Potassium 3.5 L (3.6-5.0) mmol/L Glucose 118 H (65-100) mg/dL Alkaline Phosphatase 163 H (35-129) units/L C-Reactive Protein 12.00 H (0.00-1.30) mg/dL Albumin 3.3 L (3.9-5) g/dL
[2021-09-16] MEDS: buPROPion SR 150 MG TAB PO SCH ×2 (11:00→21:18)
[2021-09-16] MEDS: LEVOTHYROXINE 125 MCG TAB PO SCH (11:00)
[2021-09-16] MEDS: ESCITALOPRAM 10 MG TAB PO SCH (11:01)
[2021-09-16] MEDS: METOPROLOL TARTRATE 25 MG TAB PO SCH ×2 (11:02→21:18)
[2021-09-16] MEDS: CEFEPIME/NS 2 GM/100 ML 2 GM/100 ML BAG IV SCH ×2 (11:05→21:19)
[2021-09-16] MEDS: FAMOTIDINE 20 MG TAB PO SCH ×2 (12:00→21:19)
[2021-09-16] MEDS: HEPARIN 5,000 UNIT/1 ML VIAL SUB-Q SCH ×2 (12:02→21:18)
[2021-09-16] MEDS: guaiFENesin DM 200/20 MG ORAL LIQD 10 ML PO PRN (12:11)
--- NOTE | 2021-09-16 13:37 | Progress Note ---
Assessment and Plan 56-year-old female with COPD, hypertension, chronic respiratory failure was admitted to the hospital with fever, cough, headache. Unvaccinated for COVID- 19. Chest x-ray revealed large cavitary mass in the right apex: She also positive for COVID-19. Daily clinical course: 09/12/2021; Disposition ;follow hernandez PCR, follow cultures Follow consultants evaluation recommendations 09/13: Positive for COVID-19, initiated on dexamethasone and remdesivir. CT chest with contrast suggestive for cavitary mass lesion on the right lung and left upper lobe. Pulmonary consulted, will follow recommendation. given COVID positive state, unable to bronch at this time. Consulted ID: Follow recommendation 09/14/21: -Continue IV/PO Dexamethasone x 10 days -Continue IV remdesivir x 5 days -Change antibiotic to IV cefepime (cover for Pseudomonas due to underlying structural lung disease), PO Flagyl and IV vancomycin by ID. -f/u sputum culture, sputum for AFB x3, sputum culture for fungus, TB QuantiFERON gold. No TB risk factors as such, however certainly could be nontuberculous mycobacterial disease due to her underlying structural lung disease. f/u pending sputum study 09/15/21; Discussed with ID and reviewed her records from [place]. -Upon review of her outside records, she had COVID-19 in February 2021 complicated by pneumothorax, requiring ICU stay, mechanical ventilation, treated with steroids, remdesivir and Actemra. - She was then hospitalized at [facility] in April 2021 with complaints of shortness of breath, found to have right upper lobe cavitary lesions. She underwent bronchoscopy and BAL there, BAL cytology showed marked acute inflammatory cells, no malignant cells identified. PAS stains showed occasional fungal hyphae, AFB stains for mycobacteria were negative. Transbronchial biopsy showed benign bronchial mucosa and submucosa with moderate acute and chronic inflammatory changes with area of necrosis and acute inflammatory infiltrate consistent with abscess. PAS stain showed occasional fungal hyphae. TB QuantiFERON gold: Negative. ANUJ: Negative. SSA/SSB, SM antibody, SCL 70 antibody: Negative, ANCA screen: Negative, TIERRA level: 68 (normal). Culture was positive for Aspergillus, she was given 3 to 6 months of voriconazole. Patient did not follow-up with ID after that. It is unclear if she was compliant with her therapy. Her brick grader is Dr. Feliz at [facility]. - More recently, she was again hospitalized at [facility] in July [address] with right upper lobe cavitation and severe emphysematous changes. Was seen by Dr. Guerrero who recommended no additional work up. - Upon review of her CT images from [place] in May [address] images here, there does not seem to be any concern for disease progression. Considering this, ID recommended no additional work up. cont to follow clinically. last dose of remdesivir tomorrow. 09/16/21: Last dose of remdesivir today. Sputum culture from this admission is growing mold. Discussed with ID and recommended to initiate on empiric VORICONAZOLE for about 6 months. Patient also needs to continue cefepime and flagyl for total 5 days which will be completed tomorrow. Plan to d/c tomorrow after 5 days of iv abx Assessment and plan: --Sepsis, due to underlying pneumonia, present on admission -- Positive COVID-19/COVID-19 pneumonia Isolation precautions, continue oxygen Initiated on dexamethasone and prednisone Consulted ID, follow inflammatory markers, procalcitonin level Continue empiric antibiotics for now -- Cavitating mass in right upper lung lobe, chronic, present since April Oxygen by nasal cannula 3 L/min. DuoNeb's Ordered CT scan of the chest. Follow pulmonary recommendation CT chest with contrast ; large irregular cavitary lesion near the right lung apex although a cavitating mass cannot be excluded suspect this could be inflammatory in nature such as fungal infection or tuberculosis there is also consolidation lateral left lower lobe suggestive of pneumonia There is an irregular spiculated mass or scarring in the left upper lobe advanced emphysematous changes Mildly enlarged mediastinal lymph nodes could be reactive --GERD (gastroesophageal reflux disease) Pepcid 20 mg p.o. twice daily. We continue the home medication -- Hypertension; moderate control Continue current antihypertensives -metoprolol 25mg bid and as needed hydralazine --History of depression, continue home dose of bupropion and Lexapro -- Hypothyroidism, continue levothyroxine -- COPD (chronic obstructive pulmonary disease) Oxygen by nasal cannula 3 L/min. DuoNeb nebulizer every 4 hours. Albuterol via nebulizer every 4 hours as needed. Pulmonary following --Full CODE STATUS --DVT/GI prophylaxis Heparin 5000 units subcu every 12 hours DVT prophylaxis Pepcid 20 mg p.o. twice daily for GI prophylaxis. Closely monitor the patient and adjust the management as needed Plan of care reviewed with the patient and her nurse Subjective Date of service: 09/16/21 Interval history: Patient seen and examined. Medical records and medication list reviewed. No acute event overnight noted by the RN. Patient feeling better. Patient is tolerating diet. She is on 2-3 L nasal cannula O2 Discussed plan of care at bedside with patient and also with ID. Objective - Exam Narrative Exam: Limited physical exam due to COVID-19 pandemic to minimize transmission of the disease and to preserve PPE. Vital reviewed and stable. GENERAL: Elderly white female lying on bed appeared to be in no discomfort. HEENT: Normocephalic. Atraumatic. NECK: Supple. CHEST/LUNGS: breathing nonlabored. On nasal cannula HEART/CARDIOVASCULAR: Heart rate stable on telemetry ABDOMEN: Visibly not distended SKIN: There is no rash NEURO: No focal motor deficit. Follows command. MUSCULOSKELETAL: No joint effusion EXTRIMITY: No swelling, no cyanosis or clubbing. PSYCH: Cooperative. - Constitutional Vitals: Vital Signs - 12hr 09/16/21 05:42 Temperature 98.3 F Pulse Rate 79 Respiratory 16 Rate Blood Pressure 137/94 O2 Sat by Pulse 98 Oximetry - Labs CBC & Chem 7: 09/16/21 06:32 09/15/21 09:58 Labs: Abnormal lab results 09/16/21 09/16/21 Range/Units 06:32 06:32 WBC 13.3 H (4.5-11.0) K/mm3 Monocytes % (Manual) 10.0 H (0.0-7.3) % Eosinophils % (Manual) 7.0 H (0.0-4.3) % Seg Neutrophils # Man 9.0 H (1.8-7.7) K/mm3 Monocytes # (Manual) 1.3 H (0.0-0.8) K/mm3 Eosinophils # (Manual) 0.9 H (0.0-0.4) K/mm3 C-Reactive Protein 12.00 H (0.00-1.30) mg/dL
--- NOTE | 2021-09-16 13:47 | Event Note ---
Date: 09/16/21 Truly appreciate ID note summary and leg work for research of outside hospital records. With that being sad, after review of that note, pulmonary will sign off at this time. She can follow up with her [facility] in [place].
[2021-09-16] MEDS: VORICONAZOLE 200 MG TAB PO SCH ×2 (13:57→21:19)
[2021-09-16] MEDS: SODIUM CHLORIDE 0.9% 50 ML IVPB IV SCH (14:00)
[2021-09-16] MEDS: REMDESIVIR 100 MG in SODIUM CHLORIDE 0.9% 250ML 250 ML IV SCH (14:00)
[2021-09-16] MEDS: MONTELUKAST 10 MG TAB PO SCH (18:04)
[2021-09-16] MEDS ORDERED: BUDESONIDE 0.5 MG/2 ML NEBU IH SCH (20:00)
[2021-09-16] MEDS ORDERED: ARFORMOTEROL 15 MCG/2 ML NEBU IH SCH (20:00)
[2021-09-16] MEDS: IPRATROPIUM 0.02% NEBU 2.5 ML IH SCH (21:56)
[2021-09-16] MEDS ORDERED: NON-FORMULARY EACH (Budesonide/Formoterol Fumarate [Symbicort 160-4.5 Mcg Inhaler] 10.2 GM IH SCH (22:00)
[2021-09-17] MEDS: oxyCODONE /ACETAMINOPHEN 5-325MG TAB PO PRN (05:17)
[2021-09-17] MEDS: metroNIDAZOLE 500 MG TAB PO SCH ×2 (05:18→13:57)
[2021-09-17] MEDS: IPRATROPIUM 0.02% NEBU 2.5 ML IH SCH (09:22)
[2021-09-17] MEDS: ESCITALOPRAM 10 MG TAB PO SCH (10:51)
[2021-09-17] MEDS: CEFEPIME/NS 2 GM/100 ML 2 GM/100 ML BAG IV SCH (10:51)
[2021-09-17] MEDS: METOPROLOL TARTRATE 25 MG TAB PO SCH (10:51)
[2021-09-17] MEDS: FAMOTIDINE 20 MG TAB PO SCH (10:52)
[2021-09-17 10:53] VITALS: BP 120/77
[2021-09-17] MEDS: buPROPion SR 150 MG TAB PO SCH (10:53)
[2021-09-17] MEDS: VORICONAZOLE 200 MG TAB PO SCH (10:53)
[2021-09-17] MEDS: LEVOTHYROXINE 125 MCG TAB PO SCH (10:53)
[2021-09-17] MEDS: HEPARIN 5,000 UNIT/1 ML VIAL SUB-Q SCH (10:54)
[2021-09-17] MEDS: MORPHINE 2 MG/1 ML INJ IV PRN (11:08)
[2021-09-17] MEDS: guaiFENesin DM 200/20 MG ORAL LIQD 10 ML PO PRN (11:09)
--- NOTE | 2021-09-17 11:32 | Progress Note ---
Assessment and Plan Cultures: SARS CoV2 PCR: Positive 09/12/2021 blood culture: No growth 09/13/2021 sputum culture: Usual respiratory ponce, mold MRSA nasal PCR: Negative A/P: 56-year-old female with COPD, hypertension, chronic respiratory failure was admitted to the hospital with fever, cough, headache. Unvaccinated for COVID- 19. 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 Upon review of her outside records, she had COVID-19 in February 2021 complicated by pneumothorax, requiring ICU stay, mechanical ventilation, treated with steroids, remdesivir and Actemra admitted to the hospital with complaints of shortness of breath and headache. She was then hospitalized at [facility] in April 2021 with complaints of shortness of breath, found to have right upper lobe cavitary lesions. She underwent bronchoscopy and BAL there, BAL cytology showed marked acute inflammatory cells, no malignant cells identified. PAS stains showed occasional fungal hyphae, AFB stains for mycobacteria were negative. Transbronchial biopsy showed benign bronchial mucosa and submucosa with moderate acute and chronic inflammatory changes with area of necrosis and acute inflammatory infiltrate consistent with abscess. PAS stain showed occasional fungal hyphae. TB QuantiFERON gold: Negative. ANUJ: Negative. SSA/SSB, SM antibody, SCL 70 antibody: Negative, ANCA screen: Negative, TIERRA level: 68 (nor mal). Culture was positive for Aspergillus, she was given 3 to 6 months of voriconazole. Patient did not follow-up with ID after that. It is unclear if she was compliant with her therapy. Her property developer is Dr. Feliz at [facility]. More recently, she was again hospitalized at [facility] in July [address] with right upper lobe cavitation and severe emphysematous changes. Was seen by Dr. Guerrero who recommended no additional work up. Upon review of her CT images from [place] in May [address] images here, there does not seem to be any concern for disease progression. Considering this, would complete current COVID-19 therapy and then discharge her to follow up outpt with her property developer Dr. Feliz. Patient unable to tell me if she took her voriconazole course. #COVID-19: unlikely to be the cause of her cavitary disease. #Chronic hypoxic respiratory failure #COPD, former smoker: Quit about 4 years ago Recs: -continue PO voriconazole 200 mg BID, recommend at least 6 months of therapy with outpatient pulm and ID clinic follow-up -Complete 5 days of cefepime and Flagyl -ID clinic follow up in a month, playground attendant notified. Patient was explained the importance of compliance with her antifungal therapy. Skyler Mcgarry MD, FACP, [facility] ([facility]) O: [phone] F: [phone] C: [phone] Subjective Date of service: 09/17/21 Interval history: Afebrile. Remains on oxygen. Denies any new complaints. Objective - Exam Narrative Exam: Physical Exam: Constitutional: Alert, cooperative. No acute distress Head, Ears, Nose: Normocephalic, atraumatic. External ears, nose normal Eyes: Conjunctivae/corneas clear. No icterus. No ptosis. Neck: Supple, no meningeal signs Cardiovascular: S1, S2 + Respiratory: Few rhonchi GI: Soft, non-tender; bowel sounds normal. No peritoneal signs Musculoskeletal: No pedal edema, no cyanosis. Skin: No rash or abscess Hem/Lymphatic: No palpable cervical or supraclavicular nodes. No lymphangitis Psych: Mood ok. Affect normal Neurological: Awake, alert, oriented. No gross abnormality - Constitutional Vitals: Vital Signs Temp Pulse Resp BP Pulse Ox 98.3 F 86 19 120/77 96 09/17/21 05:57 09/17/21 10:51 09/17/21 08:43 09/17/21 10:51 09/17/21 08:44 Temperature -Last 24 Hours Temperature 98.3 F Temperature 98.3 F Temperature 98.2 F - Labs CBC & Chem 7: 09/16/21 06:32 09/15/21 09:58
--- NOTE | 2021-09-17 12:08 | Discharge Summary ---
Providers - Providers Date of Admission: 09/12/21 03:04 Date of discharge: 09/17/21 Attending physician: BRYAN RODGERS 09/13/21 08:19 Consult to Physician [CONS] Routine Comment: Consulting Provider: GODWIN OCHOA Physician Instructions: Reason For Exam: covid positive Hospitalization Condition: Fair Hospital course: 56-year-old female with COPD, hypertension, chronic respiratory failure was admitted to the hospital with fever, cough, headache. Unvaccinated for COVID- 19. Chest x-ray revealed large cavitary mass in the right apex: She also positive for COVID-19. Daily clinical course: 09/12/2021; Disposition ;follow hernandez PCR, follow cultures Follow consultants evaluation recommendations 09/13: Positive for COVID-19, initiated on dexamethasone and remdesivir. CT chest with contrast suggestive for cavitary mass lesion on the right lung and left upper lobe. Pulmonary consulted, will follow recommendation. given COVID positive state, unable to bronch at this time. Consulted ID: Follow recommendation 09/14/21: -Continue IV/PO Dexamethasone x 10 days -Continue IV remdesivir x 5 days -Change antibiotic to IV cefepime (cover for Pseudomonas due to underlying structural lung disease), PO Flagyl and IV vancomycin by ID. -f/u sputum culture, sputum for AFB x3, sputum culture for fungus, TB QuantiFERON gold. No TB risk factors as such, however certainly could be nontuberculous mycobacterial disease due to her underlying structural lung disease. f/u pending sputum study 09/15/21; Discussed with ID and reviewed her records from [place]. -Upon review of her outside records, she had COVID-19 in February 2021 complicated by pneumothorax, requiring ICU stay, mechanical ventilation, treated with steroids, remdesivir and Actemra. - She was then hospitalized at [facility] in April 2021 with complaints of shortness of breath, found to have right upper lobe cavitary lesions. She underwent bronchoscopy and BAL there, BAL cytology showed marked acute inflammatory cells, no malignant cells identified. PAS stains showed occasional fungal hyphae, AFB stains for mycobacteria were negative. Transbronchial biopsy showed benign bronchial mucosa and submucosa with moderate acute and chronic inflammatory changes with area of necrosis and acute inflammatory infiltrate consistent with abscess. PAS stain showed occasional fungal hyphae. TB QuantiFERON gold: Negative. ANUJ: Negative. SSA/SSB, SM antibody, SCL 70 antibody: Negative, ANCA screen: Negative, TIERRA level: 68 (normal). Culture was positive for Aspergillus, she was given 3 to 6 months of voriconazole. Patient did not follow-up with ID after that. It is unclear if she was compliant with her therapy. 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 - More recently, she was again hospitalized at [facility] in July [address] and had [address] with right upper lobe cavitation and severe emphysematous changes. Was seen by Dr. Guerrero who recommended no additional work up. - Upon review of her CT images from [place] in May [address] images here, there does not seem to be any concern for disease progression. Considering this, ID recommended no additional work up. cont to follow clinically. last dose of remdesivir tomorrow. 09/16/21: Last dose of remdesivir today. Sputum culture from this admission is growing mold. Discussed with ID and recommended to initiate on empiric VORICONAZOLE for about 6 months. Patient also needs to continue cefepime and flagyl for total 5 days which will be completed tomorrow. Plan to d/c tomorrow after 5 days of iv abx Assessment and plan: --Sepsis, due to underlying pneumonia, present on admission -- Positive COVID-19/COVID-19 pneumonia Isolation precautions, continue oxygen Initiated on dexamethasone and prednisone Consulted ID, follow inflammatory markers, procalcitonin level Continue empiric antibiotics for now -- Cavitating mass in right upper lung lobe, chronic, present since April Oxygen by nasal cannula 3 L/min. Catracho's Ordered CT scan of the chest. Follow pulmonary recommendation CT chest with contrast ; large irregular cavitary lesion near the right lung apex although a cavitating mass cannot be excluded suspect this could be inflammatory in nature such as fungal infection or tuberculosis there is also consolidation lateral left lower lobe suggestive of pneumonia There is an irregular spiculated mass or scarring in the left upper lobe advanced emphysematous changes Mildly enlarged mediastinal lymph nodes could be reactive --GERD (gastroesophageal reflux disease) Pepcid 20 mg p.o. twice daily. We continue the home medication -- Hypertension; moderate control Continue current antihypertensives -metoprolol 25mg bid and as needed hydralazine --History of depression, continue home dose of bupropion and Lexapro -- Hypothyroidism, continue levothyroxine -- COPD (chronic obstructive pulmonary disease) Oxygen by nasal cannula 3 L/min. DuoNeb nebulizer every 4 hours. Albuterol via nebulizer every 4 hours as needed. Pulmonary following --Full CODE STATUS --DVT/GI prophylaxis Heparin 5000 units subcu every 12 hours DVT prophylaxis Pepcid 20 mg p.o. twice daily for GI prophylaxis. Closely monitor the patient and adjust the management as needed Plan of care reviewed with the patient and her nurse Disposition: 01 HOME / SELF CARE / HOMELESS Time spent for discharge: 34 minutes Core Measure Documentation - Palliative Care Palliative Care/ Comfort Measures: Not Applicable - Core Measures Any of the following diagnoses?: none Exam - Physical Exam Narrative exam: Limited physical exam due to COVID-19 pandemic to minimize transmission of the disease and to preserve PPE. Vital reviewed and stable. GENERAL: Elderly white female lying on bed appeared to be in no discomfort. HEENT: Normocephalic. Atraumatic. NECK: Supple. CHEST/LUNGS: breathing nonlabored. On nasal cannula HEART/CARDIOVASCULAR: Heart rate stable on telemetry ABDOMEN: Visibly not distended SKIN: There is no rash NEURO: No focal motor deficit. Follows command. MUSCULOSKELETAL: No joint effusion EXTRIMITY: No swelling, no cyanosis or clubbing. PSYCH: Cooperative. - Constitutional Vitals: Temp Pulse Resp BP Pulse Ox 99.8 F H 86 19 120/77 95 09/17/21 10:47 09/17/21 10:51 09/17/21 08:43 09/17/21 10:51 09/17/21 10:47 Plan Activity: advance as tolerated Weight Bearing Status: Weight Bear as Tolerated Diet: low fat Follow up with: PRIMARY CAREMD [Referring] - 3-5 Days GODWIN OCHOA MD [Staff Physician] - 7 Days Prescriptions: Acetaminophen [Acetaminophen TAB] 650 mg PO Q4H PRN #30 tablet PRN Reason: Pain MILD(1-3)/Fever >100.5/DEGROOT guaiFENesin DM [Guaifenesin Dm Syrup] 10 ml PO Q4H PRN #1 vial PRN Reason: Cough Famotidine [Pepcid] 40 mg PO BID PRN #60 PRN Reason: Indigestion Albuterol Mdi (or & Nicu Only) [ProAir HFA Inhaler] 2 puff IH Q4HR PRN #1 vial PRN Reason: Shortness Of Breath Voriconazole [Vfend] 200 mg PO Q12H #60 ALBUTEROL NEB's [Proventil 0.083% NEBS] 2.5 mg IH TIDRT #90 nebu
[2021-09-17] MEDS ORDERED: FLUTICASONE PROPIONATE NASAL SPRAY 16 GM NS SCH (13:00)
== END 2021-09-17 13:30 | disposition home or self-care (01) | DRG 871 ==
LOC: ED 17:19 → 3A 09-12 03:04
PROVIDERS: ADMIT Hospitalist; ATTEND Internal Medicine
PROC: XW033E5 Introduction of Remdesivir Anti-infective into Peripheral Vein, Percutaneous Approach, New Technology Group 5 (ICD-10-PCS; principal; 2021-09-12)
DX: A41.89 Other specified sepsis (principal); J12.82 Pneumonia due to coronavirus disease 2019; U07.1 COVID-19; J98.4 Other disorders of lung; K21.9 Gastro-esophageal reflux disease without esophagitis; I10 Essential (primary) hypertension; Z99.81 Dependence on supplemental oxygen; M19.90 Unspecified osteoarthritis, unspecified site; E87.6 Hypokalemia; E03.9 Hypothyroidism, unspecified; J96.11 Chronic respiratory failure with hypoxia; J44.0 Chronic obstructive pulmonary disease with (acute) lower respiratory infection; Z88.8 Allergy status to other drugs, medicaments and biological substances; Z90.49 Acquired absence of other specified parts of digestive tract; Z98.51 Tubal ligation status; Z82.49 Family history of ischemic heart disease and other diseases of the circulatory system
CPT/HCPCS: 36415; 71046; 71260; 80053; 81001; 82140; 82164; 82728; 83615; 84145; 85007; 85025; 85379; 86140; 87040; 87070; 87086; 87102; 87205; 87220; 87641; 94640; 94760; G0378; J3490; J0456; J0692; J0696; J1100; J1644; J1885; J2270; J2405; J3370; J7030; J7050; Q9967; U0003